=== PATIENT | female | born 1995 | race Caucasian/White ===

== ENCOUNTER 2017-11-08 18:46 | Emergency (ER) | payer MEDICARE, MEDICAID ==
[2017-11-08 19:52] VITALS: BP 143/97
--- NOTE | 2017-11-08 20:46 | EDM.PDOCBH ---
ED HPI GENERAL MEDICAL PROBLEM - General Chief Complaint: Behavioral/Psych Stated Complaint: EVAL Time Seen by Provider: 11/08/17 20:05 Source of Information: Reports: Patient History Limitations: Reports: No Limitations - History of Present Illness INITIAL COMMENTS - FREE TEXT/NARRATIVE: This young woman came in complaining of anxiety. She felt like somebody might be trying to get her. She takes Zyprexa but is only taking 10 mg per day. She said she was afraid to increase it because it might cause side effects. She takes Cogentin it's prescribed 1 mg twice daily but she only takes it once daily. Note that she is not having any type of EPS symptoms. There is no suicidal or homicidal ideation Denies Pain Score (Numeric/FACES): 0 - Related Data Allergies Allergy/AdvReac Type Severity Reaction Status Date / Time No Known Allergies Allergy Verified 12/13/16 02:46 Home Meds: Home Meds Benztropine [Cogentin] 1 tab PO BID 07/28/16 [History] Cholecalciferol (Vitamin D3) [Vitamin D3] 1 tab PO DAILY 07/28/16 [History] Sertraline [Zoloft] 100 tab PO DAILY 07/28/16 [History] OLANZapine [Zyprexa] 10 mg PO BEDTIME 11/08/17 [History] Past Medical History Cardiovascular History: Reports: Hypertension Psychiatric History: Reports: Addiction, Anxiety, Depression, Panic Attack, Psych Hospitalization(s), Schizophrenia - Infectious Disease History Infectious Disease History: Reports: Chicken Pox - Past Surgical History HEENT Surgical History: Reports: Oral Surgery Social & Family History - Tobacco Use Smoking Status *Q: Current Every Day Smoker Years of Tobacco use: 10 Packs/Tins Daily: 0.5 Used Tobacco, but Quit: No Second Hand Smoke Exposure: Yes - Caffeine Use Caffeine Use: Reports: Soda - Alcohol Use Days Per Week of Alcohol Use: 0 Number of Drinks Per Day: 2 Total Drinks Per Week: 0 - Recreational Drug Use Recreational Drug Use: No Drug Use in Last 12 Months: Yes Recreational Drug Type: Reports: Amphetamines (Speed), Marijuana/Hashish, Methamphetamine Recreational Drug Use Frequency: Weekly Recreational Drug Last Use: last night ED ROS GENERAL - Review of Systems Review Of Systems: ROS reveals no pertinent complaints other than HPI. ED EXAM, BEHAVIORAL HEALTH - Physical Exam Exam: See Below Exam Limited By: No Limitations General Appearance: Alert, WD/WN, No Apparent Distress Eye Exam: Bilateral Eye: Normal Inspection Respiratory/Chest: Lungs Clear Cardiovascular: Regular Rate, Rhythm Neurological: Alert, Normal Mood/Affect, CN II-XII Intact, Normal Cognition, Normal Gait, No Motor/Sensory Deficits Psychiatric: Alert, Normal Affect, Normal Cognition, Normal Mood, Other (This patient does not appear anxious) COURSE, BEHAVIORAL HEALTH COMP - Course Vital Signs: Last Vital Signs Temp 36.6 C 11/08/17 20:19 Pulse 77 11/08/17 20:19 Resp 16 11/08/17 20:19 BP 143/97 H 11/08/17 20:19 Pulse Ox 94 L 11/08/17 20:19 Departure - Departure Time of Disposition: 20:43 Disposition: Home, Self-Care 01 Condition: Fair Clinical Impression: Anxiety, Medication side effects - Discharge Information Instructions: Panic Attacks Referrals: Colton Suazo MD [Primary Care Provider] - Forms: ED Department Discharge Additional Instructions: You may increase Zyprexa to 15 mg daily or 1-1/2 tablets. The Cogentin can be increased to 1 mg twice daily as needed for side effects. 1 mg twice daily used to be the standard dose for counting the side effects of the older generation schizophrenia medications. The higher dose of Cogentin may give you a dry mouth. Follow-up with a psychiatrist as soon as possible or contact Dr. Suazo.
== END 2017-11-08 20:51 | disposition home or self-care (01) ==
LOC: JP.ED 18:46
DX: F41.9 Anxiety disorder, unspecified (principal); T43.595A Adverse effect of other antipsychotics and neuroleptics, initial encounter; I10 Essential (primary) hypertension; F32.9 Major depressive disorder, single episode, unspecified; F17.210 Nicotine dependence, cigarettes, uncomplicated; F20.9 Schizophrenia, unspecified; Z79.899 Other long term (current) drug therapy
CPT/HCPCS: 99283

== ENCOUNTER 2018-07-14 20:42 | Emergency (ER) | payer MEDICARE, MEDICAID ==
[2018-07-14 21:02] VITALS: BP 147/94
[2018-07-14] MEDS ORDERED: Aluminum Hydroxide/Magnesium Hydroxide/Simethicone Susp 30 ML Cup PO ONE (21:24)
--- NOTE | 2018-07-14 21:25 | EDM.PDOCBH ---
ED HPI GENERAL MEDICAL PROBLEM - General Chief Complaint: Behavioral/Psych Stated Complaint: EVAL Time Seen by Provider: 07/14/18 21:20 Source of Information: Reports: Patient, Old Records, RN History Limitations: Reports: No Limitations - History of Present Illness INITIAL COMMENTS - FREE TEXT/NARRATIVE: 23 yo female with known mental health issues presents with a family member due to being "on the verge of freaking out". Was transferred from here to [facility] about 3 weeks ago. Is not suicidal or homicidal currently. No recent illness. Onset: Today Onset Date: 07/14/18 Duration: Hour(s): Location: Reports: Generalized Quality: Reports: Burning (throat), Other (anxious) Severity: Moderate Improves with: Reports: None Worsens with: Reports: Other (uncertain) Context: Reports: Other (Hx of mental health problems) Associated Symptoms: Reports: Other (throat mild burning, post-nasal drip) Treatments ADMINISTRATOR: Reports: Other (see below) (usual meds only) - Related Data Allergies Allergy/AdvReac Type Severity Reaction Status Date / Time No Known Allergies Allergy Verified 06/18/18 20:25 Home Meds: Home Meds Benztropine [Cogentin] 1 tab PO BID 07/28/16 [History] OLANZapine [Olanzapine] 1 tab PO DAILY 07/14/18 [History] Past Medical History Cardiovascular History: Reports: Hypertension Psychiatric History: Reports: Addiction, Anxiety, Depression, Panic Attack, Psych Hospitalization(s), Schizophrenia - Infectious Disease History Infectious Disease History: Reports: Chicken Pox - Past Surgical History HEENT Surgical History: Reports: Oral Surgery Social & Family History - Family History Family Medical History: Noncontributory - Tobacco Use Smoking Status *Q: Current Every Day Smoker Years of Tobacco use: 10 Packs/Tins Daily: 0.5 - Caffeine Use Caffeine Use: Reports: Coffee, Energy Drinks, Soda - Recreational Drug Use Recreational Drug Use: No ED ROS GENERAL - Review of Systems Review Of Systems: See Below Constitutional: Reports: No Symptoms HEENT: Reports: Throat Pain (mild burning) Respiratory: Reports: No Symptoms Cardiovascular: Reports: No Symptoms GI/Abdominal: Reports: No Symptoms : Reports: No Symptoms Musculoskeletal: Reports: No Symptoms Skin: Reports: No Symptoms Neurological: Reports: No Symptoms Psychiatric: Reports: Anxiety ED EXAM, BEHAVIORAL HEALTH - Physical Exam Exam: See Below Exam Limited By: No Limitations General Appearance: Alert, WD/WN, No Apparent Distress Eye Exam: Bilateral Eye: Normal Inspection Ears: Normal External Exam, Normal Canal, Hearing Grossly Normal, Normal TMs Nose: Normal Inspection, Normal Mucosa, No Blood Throat/Mouth: Normal Inspection, Normal Lips, Normal Oropharynx, Normal Voice, No Airway Compromise Head: Atraumatic, Normocephalic Neck: Normal Inspection, Supple, Non-Tender Respiratory/Chest: No Respiratory Distress, Lungs Clear, Normal Breath Sounds, No Accessory Muscle Use Cardiovascular: Regular Rate, Rhythm, No Edema GI/Abdominal: Normal Bowel Sounds, Soft, Non-Tender, No Distention Extremities: Normal Inspection, Normal Range of Motion, Non-Tender, No Pedal Edema Neurological: Alert, Normal Mood/Affect, CN II-XII Intact, Normal Cognition, Normal Reflexes, No Motor/Sensory Deficits, Oriented x 3 Psychiatric: Alert, Normal Affect, Normal Cognition, Normal Mood, Oriented Skin Exam: Warm, Dry, Intact, Normal color, No rash COURSE, BEHAVIORAL HEALTH COMP - Course Vital Signs: Last Vital Signs Temp 36.7 C 07/14/18 21:07 Pulse 100 07/14/18 21:07 Resp 16 07/14/18 21:07 BP 147/94 H 07/14/18 21:07 Pulse Ox 98 07/14/18 21:07 Orders, Labs, Meds: Active Orders 24 hr Category Date Time Status DRUG SCREEN, URINE [URCHEM] Stat Lab 07/14/18 21:20 Ordered HCG QUALITATIVE,URINE [URCHEM] Stat Lab 07/14/18 21:20 Ordered UA W/MICROSCOPIC [URIN] Stat Lab 07/14/18 21:20 Ordered Laboratory Tests 07/14/18 07/14/18 07/14/18 Range/Units 21:20 21:20 21:20 WBC (4.5-11.0) K/uL RBC (3.30-5.50) M/uL Hgb (12.0-15.0) g/dL Hct (36.0-48.0) % MCV (80-98) fL MCH (27-31) pg MCHC (32-36) % Plt Count (150-400) K/uL Urine Color Yellow Urine Appearance Clear Urine pH 6.5 (4.5-8.0) Ur Specific [place] 1.015 (1.008-1.030) Urine Protein Negative (NEGATIVE) mg/dL Urine Glucose (UA) Normal (NEGATIVE) mg/dL Urine Ketones Negative (NEGATIVE) mg/dL Urine Occult Blood Negative (NEGATIVE) Urine Nitrite Negative (NEGATIVE) Urine Bilirubin Negative (NEGATIVE) Urine Urobilinogen Normal (NORMAL) mg/dL Ur Leukocyte Esterase Negative (NEGATIVE) Urine RBC 0-5 (0-5) Urine WBC 0-5 (0-5) Ur Epithelial Cells Many Amorphous Sediment Many Urine Bacteria Few Urine Mucus Not seen Urine HCG, Qual Negative Urine Opiates Screen Negative (NEGATIVE) Ur Oxycodone Screen Negative (NEGATIVE) Urine Methadone Screen Negative (NEGATIVE) Ur Propoxyphene Screen Negative (NEGATIVE) Ur Barbiturates Screen Negative (NEGATIVE) Ur Tricyclics Screen Negative (NEGATIVE) Ur Phencyclidine Scrn Negative (NEGATIVE) Ur Amphetamine Screen Negative (NEGATIVE) U Methamphetamines Scrn Negative (NEGATIVE) Urine MDMA Screen Negative (NEGATIVE) U Benzodiazepines Scrn Negative (NEGATIVE) U Cocaine Metab Screen Negative (NEGATIVE) U Marijuana (THC) Screen Presumptive positive H (NEGATIVE) 07/14/18 Range/Units 21:35 WBC 7.7 (4.5-11.0) K/uL RBC 4.82 (3.30-5.50) M/uL Hgb 14.5 (12.0-15.0) g/dL Hct 43.0 (36.0-48.0) % MCV 89 (80-98) fL MCH 30 (27-31) pg MCHC 34 (32-36) % Plt Count 166 (150-400) K/uL Urine Color Urine Appearance Urine pH (4.5-8.0) Ur Specific [place] (1.008-1.030) Urine Protein (NEGATIVE) mg/dL Urine Glucose (UA) (NEGATIVE) mg/dL Urine Ketones (NEGATIVE) mg/dL Urine Occult Blood (NEGATIVE) Urine Nitrite (NEGATIVE) Urine Bilirubin (NEGATIVE) Urine Urobilinogen (NORMAL) mg/dL Ur Leukocyte Esterase (NEGATIVE) Urine RBC (0-5) Urine WBC (0-5) Ur Epithelial Cells Amorphous Sediment Urine Bacteria Urine Mucus Urine HCG, Qual Urine Opiates Screen (NEGATIVE) Ur Oxycodone Screen (NEGATIVE) Urine Methadone Screen (NEGATIVE) Ur Propoxyphene Screen (NEGATIVE) Ur Barbiturates Screen (NEGATIVE) Ur Tricyclics Screen (NEGATIVE) Ur Phencyclidine Scrn (NEGATIVE) Ur Amphetamine Screen (NEGATIVE) U Methamphetamines Scrn (NEGATIVE) Urine MDMA Screen (NEGATIVE) U Benzodiazepines Scrn (NEGATIVE) U Cocaine Metab Screen (NEGATIVE) U Marijuana (THC) Screen (NEGATIVE) Medications Discontinued Medications Generic Name Dose Route Start Last Admin Trade Name Jocelyne PRN Reason Stop Dose Admin Al Hydroxide/Mg Hydroxide 30 ml 07/14/18 21:24 07/14/18 21:33 Mag-Al Plus PO 07/14/18 21:25 30 ml ONETIME ONE Administration Lorazepam 1 mg 07/14/18 21:24 07/14/18 22:01 Ativan PO 07/14/18 21:25 Not Given ONETIME ONE Re-Assessment/Re-Exam: After several hours in the ER Sujatha is feeling better, says she now thinks she was having a mild panic attack that has passed. Mother is OK with taking her home. Will follow up with her psych provider in [place] on . Departure - Departure Time of Disposition: 03:43 Disposition: Home, Self-Care 01 Condition: Good Clinical Impression: Anxiety - Discharge Information *PRESCRIPTION DRUG MONITORING PROGRAM REVIEWED*: Not Applicable *COPY OF PRESCRIPTION DRUG MONITORING REPORT IN PATIENT ARBEN: Not Applicable Referrals: PCP,None [Primary Care Provider] - Forms: ED Department Discharge Additional Instructions: Continue your current meds. F/U with your mental health provider early next week if possible. - My Orders Last 24 Hours: My Active Orders 07/14/18 21:20 DRUG SCREEN, URINE [URCHEM] Stat HCG QUALITATIVE,URINE [URCHEM] Stat UA W/MICROSCOPIC [URIN] Stat - Assessment/Plan Last 24 Hours: My Active Orders 07/14/18 21:20 DRUG SCREEN, URINE [URCHEM] Stat HCG QUALITATIVE,URINE [URCHEM] Stat UA W/MICROSCOPIC [URIN] Stat
[2018-07-14] MEDS: LORazepam 1 MG Tab PO ONE ×2 (21:33→22:01)
== END 2018-07-15 03:53 | disposition home or self-care (01) ==
LOC: JP.ED 20:42
DX: F41.9 Anxiety disorder, unspecified (principal); F17.210 Nicotine dependence, cigarettes, uncomplicated; I10 Essential (primary) hypertension; Z79.899 Other long term (current) drug therapy
CPT/HCPCS: 36415; 80305; 81001; 81025; 85027; 99283; A9270

== ENCOUNTER 2018-08-16 10:38 | Emergency (ER) | payer MEDICARE, MEDICAID ==
[2018-08-16 12:12] VITALS: BP 166/113
--- NOTE | 2018-08-16 12:45 | EDM.PDOC ---
ED HPI GENERAL MEDICAL PROBLEM - General Chief Complaint: ENT Problem Stated Complaint: SORES IN MOUTH Time Seen by Provider: 08/16/18 12:30 Source of Information: Reports: Patient History Limitations: Reports: No Limitations - History of Present Illness INITIAL COMMENTS - FREE TEXT/NARRATIVE: 23-year-old female who has some sores on her left lower lip for the past 2 days. No sore throat or fever. Onset: Gradual (Over the past 2 days) Oral/Mouth Pain Score (Numeric/FACES): 6 - Related Data Allergies Allergy/AdvReac Type Severity Reaction Status Date / Time No Known Allergies Allergy Verified 08/16/18 12:14 Home Meds: Home Meds risperiDONE 1 tab PO BEDTIME 08/16/18 [History] Past Medical History Cardiovascular History: Reports: Hypertension Psychiatric History: Reports: Addiction, Anxiety, Depression, Panic Attack, Psych Hospitalization(s), Schizophrenia - Infectious Disease History Infectious Disease History: Reports: Chicken Pox - Past Surgical History HEENT Surgical History: Reports: Oral Surgery Social & Family History - Family History Family Medical History: Noncontributory - Tobacco Use Smoking Status *Q: Light Tobacco Smoker Years of Tobacco use: 10 Packs/Tins Daily: 1 - Caffeine Use Caffeine Use: Reports: Coffee, Energy Drinks, Soda - Alcohol Use Days Per Week of Alcohol Use: 1 Number of Drinks Per Day: 3 Total Drinks Per Week: 3 - Recreational Drug Use Recreational Drug Use: Yes Recreational Drug Type: Reports: Marijuana/Hashish, Methamphetamine ED ROS ENT - Review of Systems Review Of Systems: See Below Constitutional: Denies: Fever, Chills Respiratory: Denies: Shortness of Breath GI/Abdominal: Denies: Nausea, Vomiting Psychiatric: Reports: Anxiety ED EXAM, ENT - Physical Exam Exam: See Below Exam Limited By: No Limitations General Appearance: Alert, No Apparent Distress, Anxious Mouth/Throat: Other (Patient does have some aphthous ulcers in the crease of the left lower gumline but no significant gingivitis or facial swelling) Respiratory/Chest: No Respiratory Distress Course - Vital Signs Last Recorded V/S: Last Vital Signs Temp 96.2 F 08/16/18 12:13 Pulse 151 H 08/16/18 12:13 Resp 16 08/16/18 12:13 BP 166/113 H 08/16/18 12:13 Pulse Ox 99 08/16/18 12:13 - Re-Assessments/Exams Free Text/Narrative Re-Assessment/Exam: 08/16/18 12:43 Patient will be placed on some triamcinolone oral paste twice daily, and can recheck if not improving satisfactorily. Departure - Departure Time of Disposition: 13:01 Disposition: Home, Self-Care 01 Condition: Good Clinical Impression: Aphthous ulcer of mouth - Discharge Information Instructions: Canker Sores Referrals: Colton Suazo MD [Primary Care Provider] - Forms: ED Department Discharge Care Plan Goals: Use steroid medicine on top of your sores twice daily until they are improved. Recheck in 3-4 days if not improving satisfactorily.
== END 2018-08-16 13:01 | disposition home or self-care (01) ==
LOC: JP.ED 10:38
DX: K12.0 Recurrent oral aphthae (principal); F17.210 Nicotine dependence, cigarettes, uncomplicated; I10 Essential (primary) hypertension; F41.9 Anxiety disorder, unspecified; F32.9 Major depressive disorder, single episode, unspecified; Z79.899 Other long term (current) drug therapy
CPT/HCPCS: 99283

== ENCOUNTER 2018-11-28 16:18 | Emergency (ER) | payer MEDICARE, MEDICAID | END 2018-11-28 17:15 | disposition left against medical advice (07) | LOC: JP.ED 16:18 | DX: Z53.21 Procedure and treatment not carried out due to patient leaving prior to being seen by health care provider (principal) ==

== ENCOUNTER 2019-02-19 10:53 | Emergency (ER) | payer MEDICARE, MEDICAID ==
--- NOTE | 2019-02-19 16:23 | EDM.PDOCBH ---
ED HPI GENERAL MEDICAL PROBLEM - General Chief Complaint: Behavioral/Psych Stated Complaint: EVAL Time Seen by Provider: 02/19/19 15:30 Source of Information: Reports: Patient History Limitations: Reports: No Limitations - History of Present Illness INITIAL COMMENTS - FREE TEXT/NARRATIVE: pt arrived to placed in a inpatient setting. She has been out of control at home. She is in the process of a civil commitment. She has been using Meth on a regular basis. A pipe and 2 empty bagies were found. She has been going through [facility] AND THEY ARE REQUESTING THAT SHE BE PLACED WHERE SHE CAN BE KEPT SAFE. sHE IS NOT TAKING HER NITE TIME MEDS. sHE DOES RECEIVE THE AMBILIFY IN THE im FORM. Onset: Gradual Duration: Day(s): Location: Reports: Other (PT HAS BEEN SMOKING mETH. 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: Psychiatric History: Reports: Addiction, Anxiety, Bipolar, Panic Attack, Psych Hospitalization(s), Schizophrenia - Infectious Disease History Infectious Disease History: Reports: Chicken Pox, Measles, Mumps - Past Surgical History Head Surgeries/Procedures: Reports: None HEENT Surgical History: Reports: Oral Surgery Respiratory Surgical History: Reports: None Dermatological Surgical History: Reports: None Social & Family History - Family History Family Medical History: Noncontributory - Tobacco Use Smoking Status *Q: Current Every Day Smoker Years of Tobacco use: 10 Packs/Tins Daily: 0.5 - Caffeine Use Caffeine Use: Reports: Coffee, Energy Drinks, Soda - Recreational Drug Use Recreational Drug Use: Yes Drug Use in Last 12 Months: Yes Recreational Drug Type: Reports: Marijuana/Hashish, Methamphetamine Recreational Drug Use Frequency: Weekly ED ROS GENERAL - Review of Systems Review Of Systems: See Below Constitutional: Reports: No Symptoms HEENT: Reports: No Symptoms Respiratory: Reports: No Symptoms Cardiovascular: Reports: No Symptoms Endocrine: Reports: No Symptoms GI/Abdominal: Reports: No Symptoms : Reports: No Symptoms Musculoskeletal: Reports: No Symptoms Skin: Reports: No Symptoms Psychiatric: Reports: Agitation, Anxiety, Hallucinations (PT HAS VARIOUS SYMPTOMS FROM HER USAGE. sHE HAS NOT SLEPT FOR A NUMBER OF DAYS. ), Other ED EXAM, BEHAVIORAL HEALTH - Physical Exam Exam: See Below Text/Narrative:: pT ARRIVED WITH A HISTORY OF USING mETH REGULARLY AND BEING QUITE OUT OF CONTROL SHE IS NOT TAKING HER USUAL MEDS. -- AT NITE. Exam Limited By: No Limitations General Appearance: Alert, Other (PT IS SLEEP DEPRIVED. ) Ears: Normal TMs Nose: Normal Inspection Throat/Mouth: Normal Inspection, Inflammation Neck: Normal Inspection Respiratory/Chest: No Respiratory Distress Cardiovascular: Regular Rate, Rhythm GI/Abdominal: Soft, Non-Tender Rectal (Female) Exam: Deferred Back Exam: Normal Inspection Extremities: Normal Inspection Neurological: Alert Psychiatric: Alert, Other (PT IS USING METH ON A REGULAR BASIS. ) COURSE, BEHAVIORAL HEALTH COMP - Course Vital Signs: Last Vital Signs Temp 35.3 C 02/19/19 18:20 Pulse 89 02/19/19 18:20 Resp 16 02/19/19 18:20 BP 124/83 02/19/19 18:20 Pulse Ox 98 02/19/19 18:20 Orders, Labs, Meds: Laboratory Tests 02/19/19 02/19/19 02/19/19 Range/Units 15:32 15:32 15:39 WBC 8.0 (4.5-11.0) K/uL RBC 4.96 (3.30-5.50) M/uL Hgb 14.8 (12.0-15.0) g/dL Hct 43.1 (36.0-48.0) % MCV 87 (80-98) fL MCH 30 (27-31) pg MCHC 34 (32-36) % Plt Count 205 (150-400) K/uL Neut % (Auto) 53 (36-66) % Lymph % (Auto) 33 (24-44) % [place] % (Auto) 13 H (2-6) % Eos % (Auto) 1 L (2-4) % Baso % (Auto) 0 (0-1) % Sodium (140-148) mmol/L Potassium (3.6-5.2) mmol/L Chloride (100-108) mmol/L Carbon Dioxide (21-32) mmol/L Anion Gap (5.0-14.0) mmol/L BUN (7-18) mg/dL Creatinine (0.6-1.0) mg/dL Est Cr Clr Drug Dosing mL/min Estimated GFR (MDRD) (>60) Glucose (74-106) mg/dL Calcium (8.5-10.1) mg/dL Total Bilirubin (0.2-1.0) mg/dL AST (15-37) U/L ALT (12-78) U/L Alkaline Phosphatase (46-116) U/L Total Protein (6.4-8.2) g/dL Albumin (3.4-5.0) g/dL Globulin (2.3-3.5) g/dL Albumin/Globulin Ratio (1.2-2.2) HCG, Quant (0-6) mIU/mL Urine Color Yellow Urine Appearance Clear Urine pH 5.0 (4.5-8.0) Ur Specific [place] 1.020 (1.008-1.030) Urine Protein Negative (NEGATIVE) mg/dL Urine Glucose (UA) 50 H (NEGATIVE) mg/dL Urine Ketones Negative (NEGATIVE) mg/dL Urine Occult Blood Negative (NEGATIVE) Urine Nitrite Negative (NEGATIVE) Urine Bilirubin Negative (NEGATIVE) Urine Urobilinogen Normal (NORMAL) mg/dL Ur Leukocyte Esterase Negative (NEGATIVE) Urine RBC 0-5 (0-5) Urine WBC 0-5 (0-5) Ur Epithelial Cells Few Amorphous Sediment Few Urine Bacteria Not seen Urine Mucus Not seen Urine Opiates Screen Negative (NEGATIVE) Ur Oxycodone Screen Negative (NEGATIVE) Urine Methadone Screen Negative (NEGATIVE) Ur Propoxyphene Screen Negative (NEGATIVE) Ur Barbiturates Screen Negative (NEGATIVE) Ur Tricyclics Screen Negative (NEGATIVE) Ur Phencyclidine Scrn Negative (NEGATIVE) Ur Amphetamine Screen Presumptive positive H (NEGATIVE) U Methamphetamines Scrn Presumptive positive H (NEGATIVE) Urine MDMA Screen Negative (NEGATIVE) U Benzodiazepines Scrn Negative (NEGATIVE) U Cocaine Metab Screen Negative (NEGATIVE) U Marijuana (THC) Screen Presumptive positive H (NEGATIVE) Ethyl Alcohol mg/dL 02/19/19 02/19/19 02/19/19 Range/Units 15:39 15:39 16:17 WBC (4.5-11.0) K/uL RBC (3.30-5.50) M/uL Hgb (12.0-15.0) g/dL Hct (36.0-48.0) % MCV (80-98) fL MCH (27-31) pg MCHC (32-36) % Plt Count (150-400) K/uL Neut % (Auto) (36-66) % Lymph % (Auto) (24-44) % [place] % (Auto) (2-6) % Eos % (Auto) (2-4) % Baso % (Auto) (0-1) % Sodium 139 L (140-148) mmol/L Potassium 3.9 (3.6-5.2) mmol/L Chloride 102 (100-108) mmol/L Carbon Dioxide 27 (21-32) mmol/L Anion Gap 13.9 (5.0-14.0) mmol/L BUN 14 (7-18) mg/dL Creatinine 1.0 (0.6-1.0) mg/dL Est Cr Clr Drug Dosing 62.31 mL/min Estimated GFR (MDRD) > 60 (>60) Glucose 68 L (74-106) mg/dL Calcium 9.3 (8.5-10.1) mg/dL Total Bilirubin 0.8 (0.2-1.0) mg/dL AST 9 L (15-37) U/L ALT 12 (12-78) U/L Alkaline Phosphatase 88 (46-116) U/L Total Protein 7.7 (6.4-8.2) g/dL Albumin 4.1 (3.4-5.0) g/dL Globulin 3.6 H (2.3-3.5) g/dL Albumin/Globulin Ratio 1.1 L (1.2-2.2) HCG, Quant 0 (0-6) mIU/mL Urine Color Urine Appearance Urine pH (4.5-8.0) Ur Specific [place] (1.008-1.030) Urine Protein (NEGATIVE) mg/dL Urine Glucose (UA) (NEGATIVE) mg/dL Urine Ketones (NEGATIVE) mg/dL Urine Occult Blood (NEGATIVE) Urine Nitrite (NEGATIVE) Urine Bilirubin (NEGATIVE) Urine Urobilinogen (NORMAL) mg/dL Ur Leukocyte Esterase (NEGATIVE) Urine RBC (0-5) Urine WBC (0-5) Ur Epithelial Cells Amorphous Sediment Urine Bacteria Urine Mucus Urine Opiates Screen (NEGATIVE) Ur Oxycodone Screen (NEGATIVE) Urine Methadone Screen (NEGATIVE) Ur Propoxyphene Screen (NEGATIVE) Ur Barbiturates Screen (NEGATIVE) Ur Tricyclics Screen (NEGATIVE) Ur Phencyclidine Scrn (NEGATIVE) Ur Amphetamine Screen (NEGATIVE) U Methamphetamines Scrn (NEGATIVE) Urine MDMA Screen (NEGATIVE) U Benzodiazepines Scrn (NEGATIVE) U Cocaine Metab Screen (NEGATIVE) U Marijuana (THC) Screen (NEGATIVE) Ethyl Alcohol < 3 mg/dL Medications Discontinued Medications Generic Name Dose Route Start Last Admin Trade Name Freq PRN Reason Stop Dose Admin Lorazepam 1 mg 02/19/19 18:02 02/19/19 18:07 Ativan PO 02/19/19 18:03 1 mg ONETIME ONE Administration Medical Clearance: 02/19/19 16:25 DRUG SCREEN IS POSITIVE FOR METH AND FOR MARAJAUNA. hER LAB WORK OTHERWISE LOOKS GOOD. 02/19/19 16:26 02/19/19 18:03 pt was accepted at [facility]. . She was given ativan 1 mg prior to leaving. 02/20/19 07:20 Departure - Departure Time of Disposition: 18:04 Disposition: DC/Tfer to Psych Hosp/Unit 65 Condition: Fair Clinical Impression: Bipolar 1 disorder, Methamphetamine abuse - Discharge Information Referrals: Colton Suazo MD [Primary Care Provider] - Forms: ED Department Discharge Care Plan Goals: Transfer to [facility] in [place].
[2019-02-19] MEDS ORDERED: LORazepam 1 MG Tab PO ONE (18:02)
[2019-02-19 18:21] VITALS: BP 124/83
== END 2019-02-19 19:06 ==
LOC: JP.ED 10:53
DX: F31.9 Bipolar disorder, unspecified (principal); F15.10 Other stimulant abuse, uncomplicated; I10 Essential (primary) hypertension; F17.210 Nicotine dependence, cigarettes, uncomplicated; Z88.8 Allergy status to other drugs, medicaments and biological substances
CPT/HCPCS: 36415; 80053; 80305; 81001; 84702; 85025; 99285; A9270; G0480

== ENCOUNTER 2019-06-27 17:03 | Emergency (ER) | payer MEDICARE, MEDICAID ==
--- NOTE | 2019-06-27 17:48 | EDM.PDOC ---
ED HPI GENERAL MEDICAL PROBLEM - General Chief Complaint: Cardiovascular Problem Stated Complaint: CHECKING PULSE HIGH Time Seen by Provider: 06/27/19 17:30 Source of Information: Reports: Patient, Old Records, RN History Limitations: Reports: No Limitations - History of Present Illness INITIAL COMMENTS - FREE TEXT/NARRATIVE: 24 yo female was in the [facility] clinic today for a sore throat and tachycardia. An antibiotic was prescribed and blood was drawn to be sent out. They then told Sujatha to come to the ER. We do not know what tests they intended to run. The tachycardia has apparently been going on for about a month. There is no fever, diarrhea, melena, diarrhea, vomiting, or chest pains. Sujatha has been recently hospitalized in a psychiatric facility and had a lot of blood work there and apparently had intermittent tachycardia while there. It is not clear what was done about it. There is a remote hx of methamphetamine use. Onset: Unknown/Unsure Duration: Week(s):, Constant Location: Reports: Chest Quality: Reports: Other (no pain with her tachycardia) Severity: Moderate Improves with: Reports: None Worsens with: Reports: None Context: Reports: Other (See above, did have a "Monster Drink" this morning. 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: Reports: Other (see below) (none) - Related Data Allergies Allergy/AdvReac Type Severity Reaction Status Date / Time risperidone [From Risperdal] AdvReac Delusions Verified 06/27/19 17:20 Home Meds: Home Meds Benztropine Mesylate 2 mg PO BEDTIME 10/18/18 [History] Benztropine Mesylate 1 tab PO ONETIME PRN 12/13/18 [History] Haloperidol Decanoate 06/27/19 [History] LORazepam 06/27/19 [History] Metoprolol Succinate 100 mg PO BEDTIME #14 tab.er.24h 06/27/19 [Rx] cloZAPine 06/27/19 [History] Past Medical History HEENT History: Reports: None Cardiovascular History: Reports: Hypertension 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: Psychiatric History: Reports: Addiction, Anxiety, Bipolar, Panic Attack, Psych Hospitalization(s), Schizophrenia - Infectious Disease History Infectious Disease History: Reports: Chicken Pox, Measles, Mumps - Past Surgical History Head Surgeries/Procedures: Reports: None HEENT Surgical History: Reports: Oral Surgery Respiratory Surgical History: Reports: None Dermatological Surgical History: Reports: None Social & Family History - Family History Family Medical History: Noncontributory - Tobacco Use Smoking Status *Q: Current Every Day Smoker Years of Tobacco use: 6 Packs/Tins Daily: 0.5 - Caffeine Use Caffeine Use: Reports: Coffee, Energy Drinks, Soda ED ROS GENERAL - Review of Systems Review Of Systems: See Below Constitutional: Reports: No Symptoms HEENT: Reports: No Symptoms Respiratory: Reports: No Symptoms Cardiovascular: Reports: Other (tachycardia) GI/Abdominal: Reports: No Symptoms : Reports: No Symptoms Musculoskeletal: Reports: No Symptoms Skin: Reports: No Symptoms Neurological: Reports: No Symptoms ED EXAM, GENERAL - Physical Exam Exam: See Below Exam Limited By: No Limitations General Appearance: Alert, WD/WN, No Apparent Distress Eye Exam: Bilateral Eye: Normal Inspection Ears: Normal External Exam, Normal Canal, Hearing Grossly Normal, Normal TMs Ear Exam: Bilateral Ear: Auricle Normal, Canal Normal, TM normal Nose: Normal Inspection, No Blood Throat/Mouth: Normal Inspection, Normal Lips, Normal Oropharynx, Normal Voice, No Airway Compromise Head: Atraumatic, Normocephalic Neck: Normal Inspection Respiratory/Chest: No Respiratory Distress, Lungs Clear, Normal Breath Sounds, No Accessory Muscle Use Cardiovascular: Regular Rate, Rhythm, No Edema, Tachycardia GI/Abdominal: Normal Bowel Sounds, Soft, Non-Tender, No Distention Back Exam: Normal Inspection. No: CVA Tenderness (R), CVA Tenderness (L) Extremities: Normal Inspection, Normal Range of Motion, Non-Tender, No Pedal Edema Neurological: Alert, Oriented, CN II-XII Intact, Normal Cognition, No Motor/ Sensory Deficits Psychiatric: Normal Affect, Normal Mood Skin Exam: Warm, Dry, Intact, Normal Color, No Rash Course - Vital Signs Text/Narrative:: Orthostats normal Last Recorded V/S: Last Vital Signs Temp 36.8 C 06/27/19 17:30 Pulse 122 H 06/27/19 18:23 Resp 15 06/27/19 18:18 BP 137/89 06/27/19 18:23 Pulse Ox 99 06/27/19 18:18 Orthostatic Blood Pressure [ 130/88 Standing] Orthostatic Blood Pressure [ 132/90 Sitting] Orthostatic Blood Pressure [ 129/86 Supine] - Orders/Labs/Meds Orders: Active Orders 24 hr Category Date Time Status Cardiac Monitoring [RC] .As Directed Care 06/27/19 17:33 Active Orthostatic Vital Signs [RC] ASDIRECTED Care 06/27/19 17:33 Active Labs: Laboratory Tests 06/27/19 06/27/19 06/27/19 Range/Units 17:51 17:54 17:56 WBC (4.5-11.0) K/uL RBC (3.30-5.50) M/uL Hgb (12.0-15.0) g/dL Hct (36.0-48.0) % MCV (80-98) fL MCH (27-31) pg MCHC (32-36) % Plt Count (150-400) K/uL Sodium 141 (140-148) mmol/L Potassium 3.9 (3.6-5.2) mmol/L Chloride 104 (100-108) mmol/L Carbon Dioxide 25 (21-32) mmol/L Anion Gap 12.5 (5.0-14.0) mmol/L BUN 9 (7-18) mg/dL Creatinine 0.9 (0.6-1.0) mg/dL Est Cr Clr Drug Dosing 96.63 mL/min Estimated GFR (MDRD) > 60 (>60) Glucose 105 (74-106) mg/dL Calcium 9.0 (8.5-10.1) mg/dL TSH, Ultra Sensitive (0.358-3.740) uIU/mL Urine Color Yellow (YELLOW) Urine Appearance Slightly cloudy A (CLEAR) Urine pH 7.0 (5.0-8.0) Ur Specific [place] 1.020 (1.008-1.030) Urine Protein Negative (NEGATIVE) mg/dL Urine Glucose (UA) Normal (NEGATIVE) mg/dL Urine Ketones Negative (NEGATIVE) mg/dL Urine Occult Blood Moderate (NEGATIVE) Urine Nitrite Negative (NEGATIVE) Urine Bilirubin Negative (NEGATIVE) Urine Urobilinogen Normal (0.2-1.0) EU/dL Ur Leukocyte Esterase Negative (NEGATIVE) Urine RBC 5-10 H (0-5) Urine WBC Not seen (0-5) Ur Epithelial Cells Not seen Amorphous Sediment Many Urine Bacteria Not seen Urine Mucus Numerous Urine Opiates Screen Negative (NEGATIVE) Ur Oxycodone Screen Negative (NEGATIVE) Urine Methadone Screen Negative (NEGATIVE) Ur Propoxyphene Screen Negative (NEGATIVE) Ur Barbiturates Screen Negative (NEGATIVE) Ur Tricyclics Screen Negative (NEGATIVE) Ur Phencyclidine Scrn Negative (NEGATIVE) Ur Amphetamine Screen Negative (NEGATIVE) U Methamphetamines Scrn Negative (NEGATIVE) Urine MDMA Screen Negative (NEGATIVE) U Benzodiazepines Scrn Negative (NEGATIVE) U Cocaine Metab Screen Negative (NEGATIVE) U Marijuana (THC) Screen Negative (NEGATIVE) 06/27/19 06/27/19 Range/Units 17:56 17:57 WBC 6.7 (4.5-11.0) K/uL RBC 4.62 (3.30-5.50) M/uL Hgb 13.3 (12.0-15.0) g/dL Hct 41.2 (36.0-48.0) % MCV 89 (80-98) fL MCH 29 (27-31) pg MCHC 32 (32-36) % Plt Count 186 (150-400) K/uL Sodium (140-148) mmol/L Potassium (3.6-5.2) mmol/L Chloride (100-108) mmol/L Carbon Dioxide (21-32) mmol/L Anion Gap (5.0-14.0) mmol/L BUN (7-18) mg/dL Creatinine (0.6-1.0) mg/dL Est Cr Clr Drug Dosing mL/min Estimated GFR (MDRD) (>60) Glucose (74-106) mg/dL Calcium (8.5-10.1) mg/dL TSH, Ultra Sensitive 0.625 (0.358-3.740) uIU/mL Urine Color (YELLOW) Urine Appearance (CLEAR) Urine pH (5.0-8.0) Ur Specific [place] (1.008-1.030) Urine Protein (NEGATIVE) mg/dL Urine Glucose (UA) (NEGATIVE) mg/dL Urine Ketones (NEGATIVE) mg/dL Urine Occult Blood (NEGATIVE) Urine Nitrite (NEGATIVE) Urine Bilirubin (NEGATIVE) Urine Urobilinogen (0.2-1.0) EU/dL Ur Leukocyte Esterase (NEGATIVE) Urine RBC (0-5) Urine WBC (0-5) Ur Epithelial Cells Amorphous Sediment Urine Bacteria Urine Mucus Urine Opiates Screen (NEGATIVE) Ur Oxycodone Screen (NEGATIVE) Urine Methadone Screen (NEGATIVE) Ur Propoxyphene Screen (NEGATIVE) Ur Barbiturates Screen (NEGATIVE) Ur Tricyclics Screen (NEGATIVE) Ur Phencyclidine Scrn (NEGATIVE) Ur Amphetamine Screen (NEGATIVE) U Methamphetamines Scrn (NEGATIVE) Urine MDMA Screen (NEGATIVE) U Benzodiazepines Scrn (NEGATIVE) U Cocaine Metab Screen (NEGATIVE) U Marijuana (THC) Screen (NEGATIVE) Meds: Medications Discontinued Medications Generic Name Dose Route Start Last Admin Trade Name Freq PRN Reason Stop Dose Admin Metoprolol Tartrate 25 mg 06/27/19 18:18 06/27/19 18:23 Lopressor PO 06/27/19 18:19 25 mg ONETIME ONE Administration Departure - Departure Time of Disposition: 19:00 Disposition: Home, Self-Care 01 Condition: Fair Clinical Impression: Tachycardia Prescriptions: Metoprolol Succinate 100 mg PO BEDTIME #14 tab.er.24h Instructions: Sinus Tachycardia Referrals: Marlee Cash PA-C [Primary Care Provider] - Forms: ED Department Discharge Additional Instructions: Take the metoprolol at bedtime daily. Recheck in the clinic within the week. Return as needed. Avoid caffeine. - My Orders Last 24 Hours: My Active Orders 06/27/19 17:33 Cardiac Monitoring [RC] .As Directed Orthostatic Vital Signs [RC] ASDIRECTED - Assessment/Plan Last 24 Hours: My Active Orders 06/27/19 17:33 Cardiac Monitoring [RC] .As Directed Orthostatic Vital Signs [RC] ASDIRECTED
[2019-06-27 18:18] VITALS: BP 137/89
[2019-06-27] MEDS ORDERED: Metoprolol Tartrate 25 MG Tab PO ONE (18:18)
[2019-06-27 18:32] VITALS: PULSE 122
== END 2019-06-27 18:59 | disposition home or self-care (01) ==
LOC: JP.ED 17:03
DX: R00.0 Tachycardia, unspecified (principal); I10 Essential (primary) hypertension; F41.9 Anxiety disorder, unspecified; F17.210 Nicotine dependence, cigarettes, uncomplicated; Z88.8 Allergy status to other drugs, medicaments and biological substances; Z79.899 Other long term (current) drug therapy
CPT/HCPCS: 36415; 80048; 80305; 81001; 84443; 85027; 99284; A9270

== ENCOUNTER 2019-07-10 09:44 | Emergency (ER) | payer MEDICARE, MEDICAID ==
--- NOTE | 2019-07-10 10:00 | EDM.PDOCBH ---
ED HPI GENERAL MEDICAL PROBLEM - General Chief Complaint: Behavioral/Psych Stated Complaint: EVEL MENTAL Time Seen by Provider: 07/10/19 09:59 Source of Information: Reports: Patient, Old Records, RN History Limitations: Reports: No Limitations - History of Present Illness INITIAL COMMENTS - FREE TEXT/NARRATIVE: 24 yo female here for medical clearance before admission to a psych facility in [place]. His transport team is standing by at this time. Going to [place] on a civil commitment. Was recently given PCN in the clinic for a cough and is not yet fully over the coughing. Does smoke. Onset: Gradual Duration: Chronic Location: Reports: Generalized Quality: Reports: Other (no pain) Severity: Moderate Improves with: Reports: Medication Worsens with: Reports: Other (non-compliance) Context: Reports: Other (See HPI) Associated Symptoms: Reports: Cough (dry), Shortness of Breath (only if she coughs very hard). 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: Psychiatric History: Reports: Addiction, Anxiety, Bipolar, Panic Attack, Psych Hospitalization(s), Schizophrenia - Infectious Disease History Infectious Disease History: Reports: Chicken Pox, Measles, Mumps - Past Surgical History Head Surgeries/Procedures: Reports: None HEENT Surgical History: Reports: Oral Surgery Respiratory Surgical History: Reports: None Dermatological Surgical History: Reports: None Social & Family History - Family History Family Medical History: Noncontributory - Caffeine Use Caffeine Use: Reports: Coffee, Energy Drinks, Soda ED ROS GENERAL - Review of Systems Review Of Systems: See Below Constitutional: Reports: No Symptoms HEENT: Reports: No Symptoms Respiratory: Reports: Cough. Denies: Shortness of Breath, Wheezing, Pleuritic Chest Pain, Sputum Cardiovascular: Reports: No Symptoms GI/Abdominal: Reports: No Symptoms : Reports: No Symptoms Musculoskeletal: Reports: No Symptoms Skin: Reports: No Symptoms Neurological: Reports: No Symptoms Psychiatric: Reports: Other (chronic mental illness) ED EXAM, BEHAVIORAL HEALTH - Physical Exam Exam: See Below Exam Limited By: No Limitations General Appearance: Alert, WD/WN, No Apparent Distress Eye Exam: Bilateral Eye: Normal Inspection, PERRL Ears: Normal External Exam, Normal Canal, Hearing Grossly Normal, Normal TMs Nose: Normal Inspection, No Blood Throat/Mouth: Normal Inspection, Normal Lips, Normal Oropharynx, Normal Voice, No Airway Compromise Head: Atraumatic, Normocephalic Neck: Normal Inspection Respiratory/Chest: No Respiratory Distress, Lungs Clear, Normal Breath Sounds, No Accessory Muscle Use, Other (dry cough) Cardiovascular: Regular Rate, Rhythm, No Edema GI/Abdominal: Normal Bowel Sounds, Soft, Non-Tender, No Distention Back Exam: Normal Inspection. No: CVA Tenderness (R), CVA Tenderness (L) Extremities: Normal Inspection, Normal Range of Motion, Non-Tender, No Pedal Edema Neurological: Alert, Normal Mood/Affect, CN II-XII Intact, Normal Cognition, No Motor/Sensory Deficits, Oriented x 3 Psychiatric: Alert, Normal Affect, Normal Cognition, Normal Mood, Oriented Skin Exam: Warm, Dry, Intact, Normal color, No rash COURSE, BEHAVIORAL HEALTH COMP - Course Vital Signs: Last Vital Signs Temp 35.5 C 07/10/19 10:00 Pulse 121 H 07/10/19 10:00 Resp 16 07/10/19 10:00 BP 124/89 07/10/19 10:00 Pulse Ox 99 07/10/19 10:00 Orders, Labs, Meds: Active Orders 24 hr Category Date Time Status UA W/MICROSCOPIC [URIN] Stat Lab 07/10/19 10:47 Ordered Laboratory Tests 07/10/19 07/10/19 07/10/19 Range/Units 10:07 10:07 10:07 WBC 3.9 L (4.5-11.0) K/uL RBC 4.53 (3.30-5.50) M/uL Hgb 13.0 (12.0-15.0) g/dL Hct 40.5 (36.0-48.0) % MCV 89 (80-98) fL MCH 29 (27-31) pg MCHC 32 (32-36) % Plt Count 137 L (150-400) K/uL Sodium 140 (140-148) mmol/L Potassium 4.1 (3.6-5.2) mmol/L Chloride 106 (100-108) mmol/L Carbon Dioxide 26 (21-32) mmol/L Anion Gap 8.1 (5.0-14.0) mmol/L BUN 12 (7-18) mg/dL Creatinine 1.0 (0.6-1.0) mg/dL Est Cr Clr Drug Dosing 62.31 mL/min Estimated GFR (MDRD) > 60 (>60) Glucose 133 H (74-106) mg/dL Calcium 8.6 (8.5-10.1) mg/dL Urine HCG, Qual Urine Opiates Screen (NEGATIVE) Ur Oxycodone Screen (NEGATIVE) Urine Methadone Screen (NEGATIVE) Ur Propoxyphene Screen (NEGATIVE) Ur Barbiturates Screen (NEGATIVE) Ur Tricyclics Screen (NEGATIVE) Ur Phencyclidine Scrn (NEGATIVE) Ur Amphetamine Screen (NEGATIVE) U Methamphetamines Scrn (NEGATIVE) Urine MDMA Screen (NEGATIVE) U Benzodiazepines Scrn (NEGATIVE) U Cocaine Metab Screen (NEGATIVE) U Marijuana (THC) Screen (NEGATIVE) Ethyl Alcohol < 3 mg/dL 07/10/19 07/10/19 Range/Units 10:47 10:47 WBC (4.5-11.0) K/uL RBC (3.30-5.50) M/uL Hgb (12.0-15.0) g/dL Hct (36.0-48.0) % MCV (80-98) fL MCH (27-31) pg MCHC (32-36) % Plt Count (150-400) K/uL Sodium (140-148) mmol/L Potassium (3.6-5.2) mmol/L Chloride (100-108) mmol/L Carbon Dioxide (21-32) mmol/L Anion Gap (5.0-14.0) mmol/L BUN (7-18) mg/dL Creatinine (0.6-1.0) mg/dL Est Cr Clr Drug Dosing mL/min Estimated GFR (MDRD) (>60) Glucose (74-106) mg/dL Calcium (8.5-10.1) mg/dL Urine HCG, Qual Negative Urine Opiates Screen Negative (NEGATIVE) Ur Oxycodone Screen Negative (NEGATIVE) Urine Methadone Screen Negative (NEGATIVE) Ur Propoxyphene Screen Negative (NEGATIVE) Ur Barbiturates Screen Negative (NEGATIVE) Ur Tricyclics Screen Negative (NEGATIVE) Ur Phencyclidine Scrn Negative (NEGATIVE) Ur Amphetamine Screen Presumptive positive H (NEGATIVE) U Methamphetamines Scrn Presumptive positive H (NEGATIVE) Urine MDMA Screen Negative (NEGATIVE) U Benzodiazepines Scrn Presumptive positive H (NEGATIVE) U Cocaine Metab Screen Negative (NEGATIVE) U Marijuana (THC) Screen Negative (NEGATIVE) Ethyl Alcohol mg/dL Departure - Departure Time of Disposition: 11:10 Disposition: DC/Tfer to Other 70 Condition: Good Clinical Impression: Chronic mental illness, Methamphetamine abuse - Discharge Information *PRESCRIPTION DRUG MONITORING PROGRAM REVIEWED*: No *COPY OF PRESCRIPTION DRUG MONITORING REPORT IN PATIENT ARBEN: No Referrals: Marlee Cash PA-C [Primary Care Provider] - Forms: ED Department Discharge Additional Instructions: Medically cleared for transport to [facility]. - My Orders Last 24 Hours: My Active Orders 07/10/19 10:47 UA W/MICROSCOPIC [URIN] Stat - Assessment/Plan Last 24 Hours: My Active Orders 07/10/19 10:47 UA W/MICROSCOPIC [URIN] Stat
[2019-07-10 10:03] VITALS: BP 124/89
[2019-07-10] MEDS ORDERED: LORazepam 1 MG Tab PO ONE (13:21)
== END 2019-07-10 16:45 | disposition other institution (70) ==
LOC: JP.ED 09:44
DX: F15.20 Other stimulant dependence, uncomplicated (principal); F99 Mental disorder, not otherwise specified; I10 Essential (primary) hypertension; F31.9 Bipolar disorder, unspecified; F41.0 Panic disorder [episodic paroxysmal anxiety]; Z88.8 Allergy status to other drugs, medicaments and biological substances
CPT/HCPCS: 36415; 80048; 80305; 81001; 81025; 85027; 99285; A9270; G0480

== ENCOUNTER 2019-11-23 19:47 | Emergency (ER) | payer MEDICARE, MEDICAID ==
[2019-11-23] MEDS ORDERED: Alum Hydrox/Mag Hydrox/Simeth 15 ML, Lidocaine 2% 15 ML PO ONE ×2 (20:54)
[2019-11-23] MEDS ORDERED: Albuterol/Ipratropium 3.0-0.5 MG/3 ML Neb Soln NEB ONE (20:55)
--- NOTE | 2019-11-23 21:01 | EDM.PDOC ---
ED HPI GENERAL MEDICAL PROBLEM - General Chief Complaint: Respiratory Problem Stated Complaint: DRY COUGHING, VOMITING Time Seen by Provider: 11/23/19 20:45 Source of Information: Reports: Patient, Family, Old Records History Limitations: Reports: Other (patient is a poor historian) - History of Present Illness INITIAL COMMENTS - FREE TEXT/NARRATIVE: 24 yo female presents with a complaint of a dry cough for a couple of weeks. She coughs to the point of vomiting. Now also has epigastric pain that is fairly new. Has been seen a couple times in the clinic. The first times he was tx'd with a course of Cefdinir. When she didn't improve she was given prednisone (2 courses) that she is mostly done with also without benefit. Was given an inhaler that she does not know the name of(albuterol) that is also not helping. No vomiting separate from coughing. No fever or SOB. Noticed today that her heart rate is elevated over her normal. No black stools or diarrhea. Onset: Gradual Duration: Week(s):, Constant Location: Reports: Chest, Abdomen (epigastrium) Quality: Reports: Burning (epigastric) Severity: Moderate Improves with: Reports: None Worsens with: Reports: Other (? time) Context: Reports: Other (see HPI) Associated Symptoms: Reports: Cough, Nausea/Vomiting (only with coughing). Denies: Fever/Chills, Shortness of Breath Treatments MEDICAL TECHNICIAN ASSISTANT: Reports: Other (see below) Other Treatments MEDICAL TECHNICIAN ASSISTANT: antibiotics epigastric Pain Score (Numeric/FACES): 8 - Related Data Allergies Allergy/AdvReac Type Severity Reaction Status Date / Time risperidone [From Risperdal] AdvReac Delusions Verified 11/23/19 20:32 Home Meds: Home Meds Benztropine Mesylate 2 mg PO BID 10/18/18 [History] Haloperidol Decanoate 150 mg IM ASDIRECTED 06/27/19 [History] LORazepam 1 tab PO QID PRN 06/27/19 [History] cloZAPine 2 tab PO BEDTIME 06/27/19 [History] Benzonatate [Tessalon Perle] 100 - 200 mg PO QID PRN #40 capsule 11/23/19 [Rx] Sucralfate [Carafate] 1 gm PO QID #100 tablet 11/23/19 [Rx] predniSONE 40 mg PO BID 11/23/19 [History] Past Medical History HEENT History: Reports: None Cardiovascular History: Reports: Hypertension 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: Psychiatric History: Reports: Addiction, Anxiety, Bipolar, Panic Attack, Psych Hospitalization(s), Schizophrenia - Infectious Disease History Infectious Disease History: Reports: Chicken Pox - Past Surgical History Head Surgeries/Procedures: Reports: None HEENT Surgical History: Reports: Oral Surgery Respiratory Surgical History: Reports: None Dermatological Surgical History: Reports: None Social & Family History - Family History Family Medical History: Noncontributory - Tobacco Use Smoking Status *Q: Current Every Day Smoker Years of Tobacco use: 13 Packs/Tins Daily: 0.5 Second Hand Smoke Exposure: Yes - Caffeine Use Caffeine Use: Reports: Coffee, Soda - Recreational Drug Use Recreational Drug Use: No ED ROS GENERAL - Review of Systems Review Of Systems: See Below Constitutional: Reports: No Symptoms HEENT: Reports: No Symptoms Respiratory: Reports: Cough. Denies: Shortness of Breath, Wheezing, Pleuritic Chest Pain, Sputum, Hemoptysis Cardiovascular: Reports: Other (tachycardia) Endocrine: Reports: No Symptoms GI/Abdominal: Reports: Abdominal Pain (epigastric), Vomiting. Denies: Black Stool, Bloody Stool, Constipation, Diarrhea, Hematemesis, Hematochezia, Melena : Reports: No Symptoms Musculoskeletal: Reports: No Symptoms Skin: Reports: No Symptoms Neurological: Reports: No Symptoms ED EXAM, GENERAL - Physical Exam Exam: See Below Exam Limited By: No Limitations General Appearance: Alert, WD/WN, No Apparent Distress Eye Exam: Bilateral Eye: Normal Inspection Ears: Normal External Exam, Normal Canal, Hearing Grossly Normal Ear Exam: Bilateral Ear: Auricle Normal, Canal Normal Nose: Normal Inspection, No Blood Throat/Mouth: Normal Inspection, Normal Lips, Normal Oropharynx, Normal Voice, No Airway Compromise Head: Atraumatic, Normocephalic Neck: Normal Inspection Respiratory/Chest: No Respiratory Distress, No Accessory Muscle Use, Chest Non- Tender, Rales (diffusely) Cardiovascular: Regular Rate, Rhythm, No Edema, Tachycardia GI/Abdominal: Normal Bowel Sounds, Soft, Tender (epigastric tenderness). No: Non-Tender, Distended, Guarding, Rigid, Rebound, Hernia Back Exam: Normal Inspection. No: CVA Tenderness (R), CVA Tenderness (L) Extremities: Normal Inspection, Normal Range of Motion, Non-Tender, No Pedal Edema Neurological: Alert, Oriented, CN II-XII Intact, Normal Cognition, No Motor/ Sensory Deficits Psychiatric: Normal Affect, Normal Mood Skin Exam: Warm, Dry, Intact, Normal Color, No Rash Course - Vital Signs Text/Narrative:: GI cocktail po-partial relief. HR down about 25/min after a liter of LR Cough better, not gone, with Tessalon. Last Recorded V/S: Last Vital Signs Temp 36.8 C 11/23/19 20:35 Pulse 131 H 11/23/19 22:08 Resp 18 11/23/19 20:35 BP 132/80 11/23/19 22:08 Pulse Ox 94 L 11/23/19 22:08 - Orders/Labs/Meds Orders: Active Orders 24 hr Category Date Time Status RT Aerosol Therapy [RC] ASDIRECTED Care 11/23/19 20:55 Active RT Peak Flow Measurement [RC] ASDIRECTED Care 11/23/19 20:55 Active Chest 2V [CR] Stat Exams 11/23/19 21:35 Taken Codeine/guaiFENesin [Robitussin AC] Med 11/23/19 23:21 Once 10 ml PO ONETIME ONE Labs: Laboratory Tests 11/23/19 11/23/19 11/23/19 Range/Units 21:01 21:01 21:02 WBC 12.7 H (4.5-11.0) K/uL RBC 4.75 (3.30-5.50) M/uL Hgb 13.7 (12.0-15.0) g/dL Hct 41.0 (36.0-48.0) % MCV 86 (80-98) fL MCH 29 (27-31) pg MCHC 33 (32-36) % Plt Count 218 (150-400) K/uL D-Dimer, Quantitative < 100 (0.0-400.0) ng/mL Sodium 136 L (140-148) mmol/L Potassium 4.3 (3.6-5.2) mmol/L Chloride 102 (100-108) mmol/L Carbon Dioxide 22 (21-32) mmol/L Anion Gap 16.3 H (5.0-14.0) mmol/L BUN 13 (7-18) mg/dL Creatinine 1.0 (0.6-1.0) mg/dL Est Cr Clr Drug Dosing 62.31 mL/min Estimated GFR (MDRD) > 60 (>60) Glucose 155 H (74-106) mg/dL Lactic Acid (0.4-2.0) mmol/L Calcium 8.6 (8.5-10.1) mg/dL Lipase 85 (73-393) U/L TSH, Ultra Sensitive (0.358-3.740) uIU/mL Urine Color (YELLOW) Urine Appearance (CLEAR) Urine pH (5.0-8.0) Ur Specific [place] (1.008-1.030) Urine Protein (NEGATIVE) mg/dL Urine Glucose (UA) (NEGATIVE) mg/dL Urine Ketones (NEGATIVE) mg/dL Urine Occult Blood (NEGATIVE) Urine Nitrite (NEGATIVE) Urine Bilirubin (NEGATIVE) Urine Urobilinogen (0.2-1.0) EU/dL Ur Leukocyte Esterase (NEGATIVE) Urine RBC (0-5) Urine WBC (0-5) Ur Epithelial Cells Amorphous Sediment Urine Bacteria Urine Mucus Urine Opiates Screen (NEGATIVE) Ur Oxycodone Screen (NEGATIVE) Urine Methadone Screen (NEGATIVE) Ur Propoxyphene Screen (NEGATIVE) Ur Barbiturates Screen (NEGATIVE) Ur Tricyclics Screen (NEGATIVE) Ur Phencyclidine Scrn (NEGATIVE) Ur Amphetamine Screen (NEGATIVE) U Methamphetamines Scrn (NEGATIVE) Urine MDMA Screen (NEGATIVE) U Benzodiazepines Scrn (NEGATIVE) U Cocaine Metab Screen (NEGATIVE) U Marijuana (THC) Screen (NEGATIVE) 11/23/19 11/23/19 11/23/19 Range/Units 21:45 21:45 22:09 WBC (4.5-11.0) K/uL RBC (3.30-5.50) M/uL Hgb (12.0-15.0) g/dL Hct (36.0-48.0) % MCV (80-98) fL MCH (27-31) pg MCHC (32-36) % Plt Count (150-400) K/uL D-Dimer, Quantitative (0.0-400.0) ng/mL Sodium (140-148) mmol/L Potassium (3.6-5.2) mmol/L Chloride (100-108) mmol/L Carbon Dioxide (21-32) mmol/L Anion Gap (5.0-14.0) mmol/L BUN (7-18) mg/dL Creatinine (0.6-1.0) mg/dL Est Cr Clr Drug Dosing mL/min Estimated GFR (MDRD) (>60) Glucose (74-106) mg/dL Lactic Acid 3.7 H (0.4-2.0) mmol/L Calcium (8.5-10.1) mg/dL Lipase (73-393) U/L TSH, Ultra Sensitive 0.414 (0.358-3.740) uIU/mL Urine Color Yellow (YELLOW) Urine Appearance Clear (CLEAR) Urine pH 7.0 (5.0-8.0) Ur Specific [place] 1.025 (1.008-1.030) Urine Protein Negative (NEGATIVE) mg/dL Urine Glucose (UA) Negative (NEGATIVE) mg/dL Urine Ketones Negative (NEGATIVE) mg/dL Urine Occult Blood Negative (NEGATIVE) Urine Nitrite Negative (NEGATIVE) Urine Bilirubin Negative (NEGATIVE) Urine Urobilinogen 0.2 (0.2-1.0) EU/dL Ur Leukocyte Esterase Negative (NEGATIVE) Urine RBC 0-5 (0-5) Urine WBC 0-5 (0-5) Ur Epithelial Cells Many Amorphous Sediment Few Urine Bacteria Rare Urine Mucus Not seen Urine Opiates Screen (NEGATIVE) Ur Oxycodone Screen (NEGATIVE) Urine Methadone Screen (NEGATIVE) Ur Propoxyphene Screen (NEGATIVE) Ur Barbiturates Screen (NEGATIVE) Ur Tricyclics Screen (NEGATIVE) Ur Phencyclidine Scrn (NEGATIVE) Ur Amphetamine Screen (NEGATIVE) U Methamphetamines Scrn (NEGATIVE) Urine MDMA Screen (NEGATIVE) U Benzodiazepines Scrn (NEGATIVE) U Cocaine Metab Screen (NEGATIVE) U Marijuana (THC) Screen (NEGATIVE) 11/23/19 Range/Units 22:09 WBC (4.5-11.0) K/uL RBC (3.30-5.50) M/uL Hgb (12.0-15.0) g/dL Hct (36.0-48.0) % MCV (80-98) fL MCH (27-31) pg MCHC (32-36) % Plt Count (150-400) K/uL D-Dimer, Quantitative (0.0-400.0) ng/mL Sodium (140-148) mmol/L Potassium (3.6-5.2) mmol/L Chloride (100-108) mmol/L Carbon Dioxide (21-32) mmol/L Anion Gap (5.0-14.0) mmol/L BUN (7-18) mg/dL Creatinine (0.6-1.0) mg/dL Est Cr Clr Drug Dosing mL/min Estimated GFR (MDRD) (>60) Glucose (74-106) mg/dL Lactic Acid (0.4-2.0) mmol/L Calcium (8.5-10.1) mg/dL Lipase (73-393) U/L TSH, Ultra Sensitive (0.358-3.740) uIU/mL Urine Color (YELLOW) Urine Appearance (CLEAR) Urine pH (5.0-8.0) Ur Specific [place] (1.008-1.030) Urine Protein (NEGATIVE) mg/dL Urine Glucose (UA) (NEGATIVE) mg/dL Urine Ketones (NEGATIVE) mg/dL Urine Occult Blood (NEGATIVE) Urine Nitrite (NEGATIVE) Urine Bilirubin (NEGATIVE) Urine Urobilinogen (0.2-1.0) EU/dL Ur Leukocyte Esterase (NEGATIVE) Urine RBC (0-5) Urine WBC (0-5) Ur Epithelial Cells Amorphous Sediment Urine Bacteria Urine Mucus Urine Opiates Screen Negative (NEGATIVE) Ur Oxycodone Screen Negative (NEGATIVE) Urine Methadone Screen Negative (NEGATIVE) Ur Propoxyphene Screen Negative (NEGATIVE) Ur Barbiturates Screen Negative (NEGATIVE) Ur Tricyclics Screen Negative (NEGATIVE) Ur Phencyclidine Scrn Negative (NEGATIVE) Ur Amphetamine Screen Negative (NEGATIVE) U Methamphetamines Scrn Negative (NEGATIVE) Urine MDMA Screen Negative (NEGATIVE) U Benzodiazepines Scrn Presumptive positive H (NEGATIVE) U Cocaine Metab Screen Negative (NEGATIVE) U Marijuana (THC) Screen Negative (NEGATIVE) Meds: Medications Discontinued Medications Generic Name Dose Route Start Last Admin Trade Name Freq PRN Reason Stop Dose Admin Acetaminophen 1,000 mg 11/23/19 21:17 11/23/19 21:36 Tylenol Extra Strength PO 11/23/19 21:18 1,000 mg ONETIME ONE Administration Albuterol/Ipratropium 3 ml 11/23/19 20:55 11/23/19 21:09 Duoneb 3.0-0.5 Mg/3 Ml NEB 11/23/19 20:56 3 ml ONETIME ONE Administration Benzonatate 200 mg 11/23/19 22:34 11/23/19 22:47 Tessalon Perles PO 11/23/19 22:35 200 mg ONETIME ONE Administration Al Hydroxide/Mg Hydroxide 15 0 ml 11/23/19 20:54 11/23/19 21:09 ml/ Lidocaine HCl 15 ml PO 11/23/19 20:55 30 ml ONETIME ONE Administration Lactated Ringer's 1,000 mls @ 1,000 mls/hr 11/23/19 22:18 11/23/19 22:29 Ringers, Lactated IV 11/23/19 23:17 1,000 mls/hr BOLUS ONE Administration Sucralfate 1 gm 11/23/19 21:17 11/23/19 22:20 Carafate PO 11/23/19 21:18 1 gm ONETIME ONE Administration - Radiology Interpretation Free Text/Narrative:: CXR- Findings/Impression: Cardiovascular and mediastinum: Heart size and vasculature are normal in caliber and appearance. Mediastinum is within normal limits. Lungs and pleural spaces: Lungs are clear. No sign of infiltrate or mass. No sign of pleural effusion. No pneumothorax. Bones and soft tissues: No significant change. Dictated by Berry Matos MD @ Nov 23 2019 10:20PM (Electronic Signature) Departure - Departure Time of Disposition: 23:35 Disposition: Home, Self-Care 01 Condition: Fair Clinical Impression: Mild dehydration, Cough Gastritis Qualifiers: Gastritis type: unspecified gastritis Chronicity: acute Gastritis bleeding: without bleeding Qualified Code(s): K29.00 - Acute gastritis without bleeding - Discharge Information *PRESCRIPTION DRUG MONITORING PROGRAM REVIEWED*: No *COPY OF PRESCRIPTION DRUG MONITORING REPORT IN PATIENT ARBEN: No Prescriptions: Benzonatate [Tessalon Perle] 100 - 200 mg PO QID PRN #40 capsule PRN Reason: Cough Sucralfate [Carafate] 1 gm PO QID #100 tablet Instructions: Gastritis, Adult, [id number], Cough, Adult, [id number] Referrals: Marlee Cash PA-C [Primary Care Provider] - Forms: ED Department Discharge Additional Instructions: No smoking. Take Tessalon as directed for cough. Take Carafate 20 minutes before meals and at bedtime to heal your gastritis. Stop your prednisone as this is likely causing the gastritis. Drink enough fluids so your urine is light yellow in color. Avoid carbonated beverages, caffeine, ibuprofen, Aleve, or aspirin until your stomach has healed. Recheck with your doctor if not improving. Sepsis Event Note - Evaluation Sepsis Screening Result: No Definite Risk - Focused Exam Vital Signs: Vital Signs Temp Pulse Resp BP Pulse Ox 11/23/19 22:08 131 H 132/80 94 L 11/23/19 20:35 36.8 C 137 H 18 157/86 H 97 11/23/19 20:17 36.8 C 137 H 18 157/86 H 97 Date Exam was Performed: 11/23/19 Time Exam was Performed: 23:22 - My Orders Last 24 Hours: My Active Orders 11/23/19 20:55 RT Aerosol Therapy [RC] ASDIRECTED RT Peak Flow Measurement [RC] ASDIRECTED 11/23/19 21:35 Chest 2V [CR] Stat 11/23/19 23:21 Codeine/guaiFENesin [Robitussin AC] 10 ml PO ONETIME ONE - Assessment/Plan Last 24 Hours: My Active Orders 11/23/19 20:55 RT Aerosol Therapy [RC] ASDIRECTED RT Peak Flow Measurement [RC] ASDIRECTED 11/23/19 21:35 Chest 2V [CR] Stat 11/23/19 23:21 Codeine/guaiFENesin [Robitussin AC] 10 ml PO ONETIME ONE
[2019-11-23] MEDS ORDERED: Acetaminophen 500 MG Tab PO ONE (21:17)
[2019-11-23] MEDS ORDERED: Sucralfate 1 GM Tab PO ONE (21:17)
[2019-11-23 22:09] VITALS: BP 132/80; PULSE 131
[2019-11-23] MEDS ORDERED: Lactated Ringers 1,000 ML IV ONE (22:18)
[2019-11-23] MEDS ORDERED: Benzonatate 100 MG Cap PO ONE (22:34)
[2019-11-23] MEDS ORDERED: Codeine/guaiFENesin 100mg-10 MG/5 ML Syrup 10 ML Cup PO ONE (23:21)
--- NOTE | 2019-11-26 07:53 | CRLCR ---
----- ADDENDUM ----- Indication: Cough Technique: Chest 2 views Comparison: 09/08/2011 Findings/Impression: Cardiovascular and mediastinum: Heart size and vasculature are normal in caliber and appearance. Mediastinum is within normal limits. Lungs and pleural spaces: Lungs are clear. No sign of infiltrate or mass. No sign of pleural effusion. No pneumothorax. Bones and soft tissues: No significant change. Dictated by Berry Matos MD @ Nov 23 2019 10:20PM Signed by: Berry Matos MD @11/23/2019 10:21:58 PM (Electronic Signature) MTDD
== END 2019-11-23 23:42 | disposition home or self-care (01) ==
LOC: JP.ED 19:47
DX: E86.0 Dehydration (principal); R05 Cough; K29.00 Acute gastritis without bleeding; F17.210 Nicotine dependence, cigarettes, uncomplicated; Z88.8 Allergy status to other drugs, medicaments and biological substances
CPT/HCPCS: 36415; 71046; 80048; 80305; 81001; 83605; 83690; 84443; 85027; 85379; 94640; 96360; 99284; A9270; J7120; J7620-GY

== ENCOUNTER 2020-01-18 07:37 | Day surgery (SDC) | payer MEDICARE, MEDICAID ==
[2020-01-18] MEDS ORDERED: Midazolam 1 MG/ML 2 ML SDV ONE (07:54)
[2020-01-18] MEDS ORDERED: fentaNYL 100 MCG/2 ML SDV ONE (07:54)
[2020-01-18] MEDS ORDERED: Propofol 200 MG/20 ML SDV ONE (07:54)
[2020-01-18] MEDS ORDERED: Dextrose 5%-Lactated Ringers 1,000 ML IV SCH (08:00)
[2020-01-18] MEDS ORDERED: Glycopyrrolate 0.2 MG/ML 2 ML SDV IVPUSH ONE (08:30)
[2020-01-18 10:03] VITALS: PULSE 102
[2020-01-18 10:36] VITALS: BP 127/77
--- NOTE | 2020-01-28 13:48 | OR ---
DATE OF PROCEDURE: 01/18/2020 SURGEON: Kvng Gonzalez MD PREOPERATIVE DIAGNOSIS: Postprandial bloating and epigastric discomfort. POSTOPERATIVE DIAGNOSES: 1. Postprandial bloating and epigastric discomfort. 2. Large gastric bezoar/retained gastric bile. 3. Mild diffuse gastritis secondary to retained gastric bile. OPERATIVE PROCEDURE: Esophagogastroduodenoscopy with antral biopsies for CLOtest. ANESTHESIA: IV sedation. INDICATION FOR PROCEDURE: This is a 24-year-old female presenting with some postprandial bloating, epigastric pain, and some degree of heartburn. She recently was started on Protonix, but did not notice any improvement in the symptoms. The plan is to proceed with an upper GI endoscopy with biopsies as indicated. Potential risks including bleeding and perforation were discussed, and the patient wishes to proceed. DETAILS OF PROCEDURE: The patient was taken to the operating room and placed in a left lateral decubitus position. IV sedation was administered, after which the upper GI endoscope was passed orally through the length of the esophagus into the stomach with retroflexion view of the fundus, and thereafter through the pyloric channel and into the junction of the 3rd and 4th portions of the duodenum. Findings included normal hypopharynx, larynx, upper esophageal sphincter, and esophageal body. No significant hiatal hernia was present and there was no evident esophagitis. As one entered the stomach, there was a fairly large bezoar present along with general retention of a fairly large amount of bile and this was associated with a mild diffuse redness of the stomach, likely related to the retained bile. As one passed through the pyloric channel, the pyloric channel and visualized portions of the duodenum were unremarkable. At this point, biopsies were taken from the antrum and sent for CLOtest for H. pylori. Minimal bleeding from the biopsy site was seen and the procedure then concluded. The overall finding would imply impaired gastric emptying. At this age, one wonders whether this might be some medication side effect. The patient and her mother will be instructed postprocedure with dietary, on an anti-bezoar diet. At this point, I will not start the patient on any prokinetic agents, which could otherwise include Reglan and erythromycin or Zithromax. One might consider medication review to see if any of her current medications are associated with significant impairment of gastric emptying. The patient will be instructed to follow up with Marlee Cash PA-C, at [facility]. Kvng Gonzalez MD /[id number]
== END 2020-01-18 10:33 | disposition home or self-care (01) ==
LOC: JP.SDS 07:37
PROVIDERS: ATTEND Surgery
DX: K29.70 Gastritis, unspecified, without bleeding (principal); K31.89 Other diseases of stomach and duodenum
CPT/HCPCS: 43239; 81025; 87081; J2250; J2704; J3010; J3490; J7121

== ENCOUNTER 2020-07-16 17:57 | Emergency (ER) | payer MEDICARE, MEDICAID ==
[2020-07-16 18:17] VITALS: BP 141/95; PULSE 103
--- NOTE | 2020-07-16 19:19 | EDM.PDOC ---
ED HPI GENERAL MEDICAL PROBLEM - General Chief Complaint: General Stated Complaint: VAGINAL BLEEDING Time Seen by Provider: 07/16/20 18:30 Source of Information: Reports: Patient, Family History Limitations: Reports: No Limitations - History of Present Illness INITIAL COMMENTS - FREE TEXT/NARRATIVE: 25-year-old female who is struggling with anovulatory, irregular menstrual cycl es and is being worked up and evaluated at the clinic. She has an ultrasound scheduled for early next week. Today she passed some dark clots, felt lightheaded so wanted to be evaluated. She also has some vague lower abdominal discomfort, no fevers or chills. Mild urinary urgency but no dysuria. Onset: Unknown/Unsure (Symptoms have been ongoing for several weeks) Associated Symptoms: Reports: Malaise, Weakness, Other (Lightheaded when standing). Denies: Chest Pain, Cough, Fever/Chills, Headaches, Nausea/Vomiting Pelvic Pain Score (Numeric/FACES): 6 - Related Data Allergies Allergy/AdvReac Type Severity Reaction Status Date / Time risperidone [From Risperdal] AdvReac Delusions Verified 11/23/19 20:32 Home Meds: Home Meds LORazepam 1 mg PO QID PRN 06/27/19 [History] cloZAPine 125 mg PO BEDTIME 06/27/19 [History] Pantoprazole Sodium [Protonix] 40 mg PO DAILY 01/15/20 [History] Metoprolol Succinate 25 mg PO QPM 07/16/20 [History] Past Medical History HEENT History: Reports: None Cardiovascular History: Reports: Other (See Below) Other Cardiovascular History: high pulse rate-? 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: Psychiatric History: Reports: Addiction, Anxiety, Bipolar, Panic Attack, Psych Hospitalization(s), Schizophrenia Endocrine/Metabolic History: Reports: Obesity/BMI 30+ - Infectious Disease History Infectious Disease History: Reports: Chicken Pox - Past Surgical History Head Surgeries/Procedures: Reports: None HEENT Surgical History: Reports: Oral Surgery Cardiovascular Surgical History: Reports: None Respiratory Surgical History: Reports: None GI Surgical History: Reports: None Endocrine Surgical History: Reports: None Dermatological Surgical History: Reports: None Social & Family History - Family History Family Medical History: Noncontributory - Tobacco Use Smoking Status *Q: Current Every Day Smoker Years of Tobacco use: 12 Packs/Tins Daily: 0.5 - Caffeine Use Caffeine Use: Reports: None - Recreational Drug Use Recreational Drug Use: No ED ROS GENERAL - Review of Systems Review Of Systems: See Below Constitutional: Reports: Malaise. Denies: Fever, Chills HEENT: Reports: No Symptoms Respiratory: Denies: Shortness of Breath Cardiovascular: Denies: Chest Pain GI/Abdominal: Reports: Abdominal Pain. Denies: Nausea, Vomiting : Reports: Urgency Skin: Reports: No Symptoms Neurological: Reports: Dizziness Psychiatric: Reports: Other (Bipolar history, stable) ED EXAM, GENERAL - Physical Exam Exam: See Below Exam Limited By: No Limitations General Appearance: Alert, No Apparent Distress Eye Exam: Bilateral Eye: Normal Inspection Head: Atraumatic Respiratory/Chest: No Respiratory Distress, Lungs Clear Cardiovascular: Regular Rate, Rhythm GI/Abdominal: Soft, Tender (Some vague tenderness to palpation across the lower abdomen in the no focal guarding or rebound) Neurological: Alert, Oriented Psychiatric: Normal Affect, Normal Mood Course - Vital Signs Last Recorded V/S: Last Vital Signs Temp 97.3 F 07/16/20 18:28 Pulse 103 H 07/16/20 18:28 Resp 16 07/16/20 18:28 BP 141/95 H 07/16/20 18:28 Pulse Ox 96 07/16/20 18:28 - Orders/Labs/Meds Labs: Laboratory Tests 07/16/20 07/16/20 07/16/20 Range/Units 18:42 18:55 18:55 WBC 7.3 (4.5-11.0) K/uL RBC 5.00 (3.30-5.50) M/uL Hgb 14.4 (12.0-15.0) g/dL Hct 42.8 (36.0-48.0) % MCV 86 (80-98) fL MCH 29 (27-31) pg MCHC 34 (32-36) % Plt Count 186 (150-400) K/uL Neut % (Auto) 63 (36-66) % Lymph % (Auto) 27 (24-44) % [place] % (Auto) 8 H (2-6) % Eos % (Auto) 1 L (2-4) % Baso % (Auto) 0 (0-1) % HCG, Qual Negative Urine Color Yellow (YELLOW) Urine Appearance Slightly cloudy A (CLEAR) Urine pH 6.5 (5.0-8.0) Ur Specific [place] 1.020 (1.008-1.030) Urine Protein Negative (NEGATIVE) mg/dL Urine Glucose (UA) Negative (NEGATIVE) mg/dL Urine Ketones Negative (NEGATIVE) mg/dL Urine Occult Blood Negative (NEGATIVE) Urine Nitrite Negative (NEGATIVE) Urine Bilirubin Negative (NEGATIVE) Urine Urobilinogen 0.2 (0.2-1.0) EU/dL Ur Leukocyte Esterase Negative (NEGATIVE) Urine RBC 0-5 (0-5) Urine WBC 0-5 (0-5) Ur Epithelial Cells Moderate Urine Bacteria Many Urine Mucus Not seen - Re-Assessments/Exams Free Text/Narrative Re-Assessment/Exam: 07/16/20 20:59 UA was obtained by clean-catch, CBC and qualitative serum beta-hCG was drawn. Hemoglobin and white count were normal, hCG was 0. Urine was clear. Patient was reassured and will follow-up at the clinic as scheduled. Departure - Departure Time of Disposition: 19:24 Disposition: Home, Self-Care 01 Clinical Impression: Dysfunctional uterine bleeding - Discharge Information Instructions: Abnormal Uterine Bleeding Referrals: Marlee Cash PA-C [Primary Care Provider] - Forms: ED Department Discharge Care Plan Goals: Activity as tolerated, follow-up with your primary provider for ultrasound and rechecks as scheduled. Return sooner if worsening such as fever or increased pain. Sepsis Event Note (ED) - Evaluation Sepsis Screening Result: No Definite Risk - Focused Exam Vital Signs: Vital Signs Temp Pulse Resp BP Pulse Ox 07/16/20 18:28 97.3 F 103 H 16 141/95 H 96 07/16/20 18:16 97.3 F 103 H 16 141/95 H 96
== END 2020-07-16 19:26 | disposition home or self-care (01) ==
LOC: JP.ED 17:57
DX: N93.8 Other specified abnormal uterine and vaginal bleeding (principal); E66.9 Obesity, unspecified; Z68.34 Body mass index [BMI] 34.0-34.9, adult; F17.210 Nicotine dependence, cigarettes, uncomplicated; Z88.8 Allergy status to other drugs, medicaments and biological substances; Z79.899 Other long term (current) drug therapy
CPT/HCPCS: 36415; 81001; 84703; 85025; 99284

== ENCOUNTER 2020-09-09 09:41 | Day surgery (SDC) | payer MEDICARE, MEDICAID ==
[2020-09-09] MEDS ORDERED: Dextrose 5%-Lactated Ringers 1,000 ML IV SCH (10:15)
[2020-09-09] MEDS ORDERED: fentaNYL 100 MCG/2 ML SDV ONE (10:41)
[2020-09-09] MEDS ORDERED: Propofol 200 MG/20 ML SDV ONE (10:41)
[2020-09-09] MEDS ORDERED: Ondansetron 4 MG/2 ML SDV ONE (10:41)
[2020-09-09] MEDS ORDERED: Midazolam 1 MG/ML 2 ML SDV ONE (10:41)
[2020-09-09] MEDS ORDERED: Glycopyrrolate 0.2 MG/ML 2 ML SDV IVPUSH ONE (11:00)
[2020-09-09 13:20] VITALS: BP 117/77; PULSE 112
--- NOTE | 2020-09-16 15:45 | OR ---
DATE OF PROCEDURE: 09/09/2020 SURGEON: Kvng Gonzalez MD PREOPERATIVE DIAGNOSIS: Persistent epigastric discomfort with history of gastric bezoars. POSTOPERATIVE DIAGNOSIS: Large volume of retained gastric contents (bezoar) consistent with gastroparesis refractory to medical management. OPERATIVE PROCEDURE: Esophagogastroduodenoscopy with: 1. Partial evacuation of gastric bezoar contents (70936). 2. Biopsies of the antrum for CLOtest ([id number]). ANESTHESIA: General. INDICATIONS FOR PROCEDURE: This is a 25-year-old presenting with some persistent epigastric discomfort. She is noted to have some bezoar formation and is better on a course of Zithromax in order to augment gastric emptying. Despite that, she continued to be quite symptomatic, and a followup upper endoscopy is to be performed at this time. Potential risks of procedure including bleeding and perforation were discussed, and the patient wishes to proceed. DETAILS OF PROCEDURE: The patient was taken to the operating room, placed in a left lateral decubitus position. IV sedation was administered, after which the upper GI endoscope was passed orally through the length of the esophagus and into the stomach with retroflexion view of the fundus, and thereafter through the pyloric channel and into the proximal duodenum. Findings included some redness and retained food within the distal esophagus consistent with ongoing bezoar formation within the stomach. There was a quite large amount of bezoar present in the stomach. This was evacuated by means of . It was quite friable, and at that point it was felt unlikely to be successful and may need for a stent. There is some general redness in the stomach related to bezoar present. Biopsies were obtained from the antrum once again to assess the patient's H pylori status. No bleeding from the biopsy sites was seen and the pyloric channel was confirmed to be nonobstructive and visualized portion of the duodenum was unremarkable. At this point, the scope was then withdrawn and the procedure then concluded. The patient was taken to the recovery room in satisfactory condition. PLAN: Plan will be to see the patient back next week along with her mother to discuss treatment options. The patient really at this point has gastroparesis that is refractory to medical management. This may be related to some of her psychiatric medications as she does not have an overt diagnosis of diabetes, but at this point, the medical management appeared to be failed they have been trying to maintain an anti-bezoar type diet in addition to the Zithromax. We will see the patient back next week to discuss treatment options. Kvng Gonzalez MD /[phone]
== END 2020-09-09 13:30 | disposition home or self-care (01) ==
LOC: JP.SDS 09:41
PROVIDERS: ATTEND Surgery
DX: T18.2XXA Foreign body in stomach, initial encounter (principal); J45.909 Unspecified asthma, uncomplicated; E66.9 Obesity, unspecified; Z88.8 Allergy status to other drugs, medicaments and biological substances; Z68.33 Body mass index [BMI] 33.0-33.9, adult
CPT/HCPCS: 43239; 43247; 81025; 87081; J2250; J2405; J2704; J3010; J3490; J7121

== ENCOUNTER 2021-08-28 10:37 | Emergency (ER) | payer MEDICARE, MEDICAID ==
[2021-08-28 10:54] VITALS: BP 129/100; PULSE 113
--- NOTE | 2021-08-28 11:23 | EDM.PDOCBH ---
ED HPI GENERAL MEDICAL PROBLEM - General Chief Complaint: Behavioral/Psych Stated Complaint: MEDICAL VIA [facility] Time Seen by Provider: 08/28/21 10:59 Source of Information: Reports: Patient, Family, Old Records, RN Notes Reviewed History Limitations: Reports: No Limitations - History of Present Illness INITIAL COMMENTS - FREE TEXT/NARRATIVE: 26-year-old female presents to the emergency department for mental health. She has known history of schizophrenia is taking clozapine however per report from her mental health provider and mom she is intermittently taking this medication mom states that she has had decreased oral intake has not taken food some water has not showered for several weeks. Has worked with her healthcare provider to get further treatment however family has declined thus far. Decided to bring her to the emergency department via EMS services for evaluation denies depression denies any suicidal ideation homicidal ideation - Related Data Allergies Allergy/AdvReac Type Severity Reaction Status Date / Time risperidone [From Risperdal] AdvReac Delusions Verified 08/28/21 10:46 Home Meds: Home Meds cloZAPine 125 mg PO BEDTIME 06/27/19 [History] Pantoprazole Sodium [Protonix] 40 mg PO DAILY 01/15/20 [History] Metoprolol Succinate 25 mg PO QPM 07/16/20 [History] Azithromycin 125 mg PO DAILY 09/09/20 [History] Past Medical History Cardiovascular History: Reports: Other (See Below) Other Cardiovascular History: high pulse rate-? r/t medications Respiratory History: Reports: Bronchitis, Recurrent Gastrointestinal History: Reports: Chronic Constipation, Chronic Diarrhea, Gastritis CORPORATE RISK ANALYST History: Reports: , Other (See Below) Other CORPORATE RISK ANALYST History: heavy bleeding and clotting Psychiatric History: Reports: Addiction, Anxiety, Bipolar, Panic Attack, Psych Hospitalization(s), Schizophrenia Endocrine/Metabolic History: Reports: Obesity/BMI 30+ Hematologic History: Reports: Other (See Below) Other Hematologic History: large uterine clots frequently - Infectious Disease History Infectious Disease History: Reports: Chicken Pox - Past Surgical History Head Surgeries/Procedures: Reports: None HEENT Surgical History: Reports: Oral Surgery Other HEENT Surgeries/Procedures: tooth pulled Cardiovascular Surgical History: Reports: None Respiratory Surgical History: Reports: None GI Surgical History: Reports: None Endocrine Surgical History: Reports: None Dermatological Surgical History: Reports: None Social & Family History - Family History Family Medical History: No Pertinent Family History - Tobacco Use Tobacco Use Status *Q: Current Every Day Tobacco User Years of Tobacco use: 10 Packs/Tins Daily: 0.5 Used Tobacco, but Quit: No - Caffeine Use Caffeine Use: Reports: Soda Caffeine Use Comment: 2 bottles daily - Recreational Drug Use Recreational Drug Use: No ED ROS GENERAL - Review of Systems Review Of Systems: See Below Constitutional: Reports: No Symptoms HEENT: Reports: No Symptoms Respiratory: Reports: No Symptoms Cardiovascular: Reports: No Symptoms Endocrine: Reports: No Symptoms GI/Abdominal: Reports: No Symptoms : Reports: No Symptoms Musculoskeletal: Reports: No Symptoms Psychiatric: Reports: No Symptoms. Denies: Depression, Homicidal Ideation, Suicidal Ideation ED EXAM, BEHAVIORAL HEALTH - Physical Exam Exam: See Below Text/Narrative:: Orientated to person place and time, appropriately dressed, poorly groomed, memory to recent and remote events intact, good attention and concentration, speech is of adequate rate tone and volume, good fund of knowledge, language is appropriate, Mood and affect are depressed, no pressured thoughts, denies suicidal ideation, denies homicidal ideation, no hallucinations visual or auditory, poor judgment, poor insight Exam Limited By: No Limitations General Appearance: Alert, WD/WN, No Apparent Distress Eye Exam: Bilateral Eye: Normal Inspection Respiratory/Chest: No Respiratory Distress, Lungs Clear, Normal Breath Sounds, No Accessory Muscle Use, Chest Non-Tender Cardiovascular: Regular Rate, Rhythm, No Murmur GI/Abdominal: Soft, Non-Tender COURSE, BEHAVIORAL HEALTH COMP - Course Vital Signs: Last Vital Signs Temp 98.1 F 08/28/21 10:50 Pulse 113 H 08/28/21 10:50 Resp 17 08/28/21 10:50 BP 129/100 H 08/28/21 10:50 Pulse Ox 98 08/28/21 10:50 Orders, Labs, Meds: Active Orders 24 hr Category Date Time Status CULTURE URINE [RM] Urgent Lab 08/28/21 11:28 Received Laboratory Tests 08/28/21 08/28/21 08/28/21 Range/Units 11:15 11:15 11:15 WBC 4.5 (4.5-11.0) K/uL RBC 5.27 (3.30-5.50) M/uL Hgb 15.0 (12.0-15.0) g/dL Hct 43.9 (36.0-48.0) % MCV 83 (80-98) fL MCH 29 (27-31) pg MCHC 34 (32-36) % Plt Count 165 (150-400) K/uL Neut % (Auto) 49.8 (36-66) % Lymph % (Auto) 39.9 (24-44) % [place] % (Auto) 8.5 H (2-6) % Eos % (Auto) 1.6 L (2-4) % Baso % (Auto) 0.2 (0-1) % Sodium 140 (140-148) mmol/L Potassium 4.1 (3.6-5.2) mmol/L Chloride 102 (100-108) mmol/L Carbon Dioxide 24 (21-32) mmol/L Anion Gap 14.3 H (5.0-14.0) mmol/L BUN 12 (7-18) mg/dL Creatinine 0.9 (0.6-1.0) mg/dL Est Cr Clr Drug Dosing 71.48 mL/min Estimated GFR (MDRD) > 60 (>60) Glucose 83 (74-106) mg/dL Calcium 9.4 (8.5-10.1) mg/dL Total Bilirubin 0.7 (0.2-1.0) mg/dL AST 9 L (15-37) U/L ALT 7 L (12-78) U/L Alkaline Phosphatase 84 (46-116) U/L Total Protein 6.9 (6.4-8.2) g/dL Albumin 4.3 (3.4-5.0) g/dL Globulin 2.6 (2.3-3.5) g/dL Albumin/Globulin Ratio 1.7 (1.2-2.2) TSH, Ultra Sensitive (0.358-3.740) uIU/mL Urine Color (YELLOW) Urine Appearance (CLEAR) Urine pH (5.0-8.0) Ur Specific [place] (1.008-1.030) Urine Protein (NEGATIVE) mg/dL Urine Glucose (UA) (NEGATIVE) mg/dL Urine Ketones (NEGATIVE) mg/dL Urine Occult Blood (NEGATIVE) Urine Nitrite (NEGATIVE) Urine Bilirubin (NEGATIVE) Urine Urobilinogen (0.2-1.0) EU/dL Ur Leukocyte Esterase (NEGATIVE) Urine RBC (0-5) Urine WBC (0-5) Ur Epithelial Cells Amorphous Sediment Urine Bacteria Urine Mucus Urine Opiates Screen (NEGATIVE) Ur Oxycodone Screen (NEGATIVE) Urine Methadone Screen (NEGATIVE) Ur Propoxyphene Screen (NEGATIVE) Ur Barbiturates Screen (NEGATIVE) Ur Tricyclics Screen (NEGATIVE) Ur Phencyclidine Scrn (NEGATIVE) Ur Amphetamine Screen (NEGATIVE) U Methamphetamines Scrn (NEGATIVE) Urine MDMA Screen (NEGATIVE) U Benzodiazepines Scrn (NEGATIVE) U Cocaine Metab Screen (NEGATIVE) U Marijuana (THC) Screen (NEGATIVE) Ethyl Alcohol < 3 mg/dL 08/28/21 08/28/21 08/28/21 Range/Units 11:15 11:28 11:28 WBC (4.5-11.0) K/uL RBC (3.30-5.50) M/uL Hgb (12.0-15.0) g/dL Hct (36.0-48.0) % MCV (80-98) fL MCH (27-31) pg MCHC (32-36) % Plt Count (150-400) K/uL Neut % (Auto) (36-66) % Lymph % (Auto) (24-44) % [place] % (Auto) (2-6) % Eos % (Auto) (2-4) % Baso % (Auto) (0-1) % Sodium (140-148) mmol/L Potassium (3.6-5.2) mmol/L Chloride (100-108) mmol/L Carbon Dioxide (21-32) mmol/L Anion Gap (5.0-14.0) mmol/L BUN (7-18) mg/dL Creatinine (0.6-1.0) mg/dL Est Cr Clr Drug Dosing mL/min Estimated GFR (MDRD) (>60) Glucose (74-106) mg/dL Calcium (8.5-10.1) mg/dL Total Bilirubin (0.2-1.0) mg/dL AST (15-37) U/L ALT (12-78) U/L Alkaline Phosphatase (46-116) U/L Total Protein (6.4-8.2) g/dL Albumin (3.4-5.0) g/dL Globulin (2.3-3.5) g/dL Albumin/Globulin Ratio (1.2-2.2) TSH, Ultra Sensitive 1.358 (0.358-3.740) uIU/mL Urine Color Yellow (YELLOW) Urine Appearance Cloudy A (CLEAR) Urine pH 5.5 (5.0-8.0) Ur Specific [place] >= 1.030 (1.008-1.030) Urine Protein 30 H (NEGATIVE) mg/dL Urine Glucose (UA) Negative (NEGATIVE) mg/dL Urine Ketones Negative (NEGATIVE) mg/dL Urine Occult Blood Negative (NEGATIVE) Urine Nitrite Negative (NEGATIVE) Urine Bilirubin Moderate H (NEGATIVE) Urine Urobilinogen 0.2 (0.2-1.0) EU/dL Ur Leukocyte Esterase Negative (NEGATIVE) Urine RBC 0-5 (0-5) Urine WBC 10-20 H (0-5) Ur Epithelial Cells Many Amorphous Sediment Few Urine Bacteria Moderate Urine Mucus Moderate Urine Opiates Screen Negative (NEGATIVE) Ur Oxycodone Screen Negative (NEGATIVE) Urine Methadone Screen Negative (NEGATIVE) Ur Propoxyphene Screen Negative (NEGATIVE) Ur Barbiturates Screen Negative (NEGATIVE) Ur Tricyclics Screen Negative (NEGATIVE) Ur Phencyclidine Scrn Negative (NEGATIVE) Ur Amphetamine Screen Negative (NEGATIVE) U Methamphetamines Scrn Negative (NEGATIVE) Urine MDMA Screen Negative (NEGATIVE) U Benzodiazepines Scrn Negative (NEGATIVE) U Cocaine Metab Screen Negative (NEGATIVE) U Marijuana (THC) Screen Negative (NEGATIVE) Ethyl Alcohol mg/dL Departure - Departure Time of Disposition: 14:21 Disposition: Home, Self-Care 01 Condition: Poor Clinical Impression: Schizophrenia Qualifiers: Schizophrenia type: disorganized schizophrenia Qualified Code(s): F20.1 - Disorganized schizophrenia - Discharge Information Instructions: Schizophrenia Referrals: Nae Almonte PA-C [Primary Care Provider] - Forms: ED Department Discharge Additional Instructions: Home care nurse will do an evaluation tomorrow, [facility] will continue working on long-term placement plan, the urine culture is pending this should be available in about 3 days if it is consistent with infection antibiotics will be prescribed Sepsis Event Note (ED) - Evaluation Sepsis Screening Result: No Definite Risk - Focused Exam Vital Signs: Vital Signs Temp Pulse Resp BP Pulse Ox 08/28/21 10:50 98.1 F 113 H 17 129/100 H 98 08/28/21 10:45 98.1 F 113 H 17 129/100 H 98 - My Orders Last 24 Hours: My Active Orders 08/28/21 11:28 CULTURE URINE [RM] Urgent - Assessment/Plan Last 24 Hours: My Active Orders 08/28/21 11:28 CULTURE URINE [RM] Urgent Plan: Assessment Acuity = acute Site and laterality = schizophrenia Etiology = medical compliance Manifestations = none Location of injury = Home Lab values = CBC, CMP unremarkable, urinalysis does have 10-20 WBCs with pyuria and moderate amount of bacteria however specific gravity 1.03 consistent with intravascular volume repletion culture is pending Plan Discharge planning did help placement, [facility] is currently working on long-term placement for the schizophrenia to help with medical compliance and her mental health. At this time I did not feel the need for medical hold and would have difficulty getting placement from the emergency department for noncompliance with schizophrenia. Discharge planning was very helpful in arranging a home care nurse to check on her tomorrow and then appointment with on Tuesday, continue to work with long-term placement plan, urine cultures pending if this does not prove to be urinary tract infection will provide This note was dictated using [employer] voice recognition software please call with any questions on syntax or grammar.
== END 2021-08-28 14:35 | disposition home or self-care (01) ==
LOC: JP.ED 10:37
DX: F20.1 Disorganized schizophrenia (principal); E66.9 Obesity, unspecified; Z68.24 Body mass index [BMI] 24.0-24.9, adult; Z72.0 Tobacco use; Z88.8 Allergy status to other drugs, medicaments and biological substances; Z79.899 Other long term (current) drug therapy
CPT/HCPCS: 36415; 80053; 80305-QW; 80307; 81001; 84443; 85025; 87086; 99284

== ENCOUNTER 2021-09-09 15:33 | Emergency (ER) | payer MEDICARE, MEDICAID ==
--- NOTE | 2021-09-09 17:42 | EDM.PDOCBH ---
<OneilSonia - Last Filed: 09/10/21 04:46> ED HPI GENERAL MEDICAL PROBLEM - General Chief Complaint: Behavioral/Psych Stated Complaint: DEHYDRATED,MENTAL HEALTH EVAL Time Seen by Provider: 09/09/21 17:38 - Related Data Allergies Allergy/AdvReac Type Severity Reaction Status Date / Time risperidone [From Risperdal] AdvReac Delusions Verified 09/09/21 16:45 Home Meds: Home Meds cloZAPine 125 mg PO BEDTIME 06/27/19 [History] Pantoprazole Sodium [Protonix] 40 mg PO DAILY 01/15/20 [History] OLANZapine [Olanzapine Odt] 5 mg PO BEDTIME #30 tab.rapdis 09/15/21 [Rx] COURSE, BEHAVIORAL HEALTH COMP - Course Medical Clearance: 09/09/21 19:[address] Officer, ER at change of shift/transfer of care. chart to be sent to [facility] unit for review. Hoping for acceptance for medication management/adjustment to stabilize her chronic schitzophrenia. This has been recommended by her outpatient psychiatrist as patient has been noncompliant with medications for unknown timeframe, not caring for self appropriately (not bathing/dishelved appearance, ?-able eating/drinking although labs do not indicated any acute concerns with dehydration but patient was given 1L NS bolus as she states she was dehydrated and could not drink because of this). Labs have been reviewed during change of shift discussion. Patient is medically cleared at this time for psychiatric placement Discharge vs Psych Eval/Treatment:: 09/10/21 04:47 [facility] unit has accepted at this time, accepting physician is Dr Blood. Departure - Departure Time of Disposition: 04:46 Disposition: Home, Self-Care 01 Clinical Impression: Noncompliance with medication regimen, Mild dehydration Schizophrenia Qualifiers: Schizophrenia type: disorganized schizophrenia Qualified Code(s): F20.1 - Disorganized schizophrenia - Discharge Information Prescriptions: OLANZapine [Olanzapine Odt] 5 mg PO BEDTIME #30 tab.rapdis Instructions: Managing Schizophrenia, Supporting Someone With Schizophrenia Referrals: Nae Almonte PA-C [Primary Care Provider] - Forms: ED Department Discharge Care Plan Goals: Continue taking the olanzapine 1 tablet at bedtime to treat your schizophrenia. NOT TAKING A DOSE IS NOT AND OPTION!! Follow-up with your primary provider as soon as possible. <OfficerEfren - Last Filed: 09/15/21 16:52> ED HPI GENERAL MEDICAL PROBLEM - General Source of Information: Reports: Patient, Family, Old Records, RN Notes Reviewed History Limitations: Reports: Physical Impairment - History of Present Illness INITIAL COMMENTS - FREE TEXT/NARRATIVE: 26-year-old female presents emergency department today for further mental health evaluation, she has known history of schizophrenia follows with mental health in the clinic she has been on a decline for the last several weeks has had poor oral intake is very unkempt has refused to shower or get out of bed does admit to depression was evaluated by myself 2 weeks ago we tried to do an admission at that time but were unsuccessful with placement caregiver decided to take her home and continue to work with outpatient services. Unfortunately the county or any outpatient services have been initiated. Reviewing notes from both her primary care provider and her mental health provider feel that she needs hospitalization however they will continue to work on that. None of this has come to fruition at this time. When asked she denies any suicidal ideation any homicidal ideation she does admit to being depressed she has a very flat affect gets into repeated questions stating she needs to go to the emergency department in [place] because she is dehydrated she is unable to eat or drink because she is dehydrated. Difficult to obtain any review of systems from her due to her current state. She has declined significantly from the last time I interviewed her on the on 28 August 0 Pain Score (Numeric/FACES): 8 Past Medical History Cardiovascular History: Reports: Other (See Below) Other Cardiovascular History: high pulse rate-? r/t medications Respiratory History: Reports: Bronchitis, Recurrent Gastrointestinal History: Reports: Chronic Constipation, Chronic Diarrhea, Gastritis CLINICAL SUPPORT NURSE History: Reports: Other (See Below) Other CLINICAL SUPPORT NURSE History: heavy bleeding and clotting Psychiatric History: Reports: Addiction, Anxiety, Bipolar, Panic Attack, Psych Hospitalization(s), Schizophrenia Endocrine/Metabolic History: Reports: Obesity/BMI 30+ Hematologic History: Reports: Other (See Below) Other Hematologic History: large uterine clots frequently - Infectious Disease History Infectious Disease History: Reports: Chicken Pox - Past Surgical History Head Surgeries/Procedures: Reports: None HEENT Surgical History: Reports: Oral Surgery Other HEENT Surgeries/Procedures: tooth pulled Cardiovascular Surgical History: Reports: None Respiratory Surgical History: Reports: None GI Surgical History: Reports: None Endocrine Surgical History: Reports: None Dermatological Surgical History: Reports: None Social & Family History - Family History Family Medical History: No Pertinent Family History - Tobacco Use Tobacco Use Status *Q: Former Tobacco User Used Tobacco, but Quit: Yes Month/Year Tobacco Last Used: 2010 Second Hand Smoke Exposure: No - Caffeine Use Caffeine Use: Reports: Soda Other Caffeine Use: Sprite X1 large Caffeine Use Comment: 2 bottles daily - Recreational Drug Use Recreational Drug Use: No ED ROS GENERAL - Review of Systems Review Of Systems: Unable To Obtain Reason Not Obtained: Psychotic state ED EXAM, BEHAVIORAL HEALTH - Physical Exam Exam: See Below Text/Narrative:: Orientated to person only is confused about place and time, appropriately dressed, poorly groomed, memory to recent and remote events limited, good attention and concentration, speech is of adequate reduced tone and volume, poor fund of knowledge, language is appropriate, Mood and affect are depressed, no pressured thoughts, denies suicidal ideation, denies homicidal ideation, no hallucinations visual or auditory, poor judgment, poor insight Exam Limited By: Physical Impairment General Appearance: Alert, No Apparent Distress Eye Exam: Bilateral Eye: Normal Inspection Respiratory/Chest: No Respiratory Distress, Lungs Clear, Normal Breath Sounds, No Accessory Muscle Use, Chest Non-Tender Cardiovascular: Regular Rate, Rhythm, No Murmur GI/Abdominal: Soft, Non-Tender COURSE, BEHAVIORAL HEALTH COMP - Course Re-Assessment/Re-Exam: Randy Moreland declined admission felt this was more of medical problem rather than a psychiatric problem, we are going to attempt to do a psychiatric consult via telemedicine today. Took over care at 7 AM, will continue with evaluation for failure to thrive consultations from PT OT and speech therapy have been ordered today patient remains stable vitally minimal oral intake Medical Clearance: 09/13/21 06:49 was observed eating and drinking daily 09/15/21 16:52 Continue to work on placement, nursing staff was able to get her in the shower today she brushed her teeth applied hygiene products. Nursing staff has noticed that given simple directions she will follow commands will eat her food does toilet training independently. She now has been on IM Zyprexa for the last 4days suspicious this may be starting to influence some of her behavior. Did have a long discussion with her primary care mental health provider who still feels that inpatient psychiatric treatment would be best for her were then with long-term care. We will continue to try and find placement for her. Sepsis Event Note (ED) - Evaluation Sepsis Screening Result: No Definite Risk <Rusty Agarwal - Last Filed: 09/15/21 19:51> COURSE, BEHAVIORAL HEALTH COMP - Course Vital Signs: Last Vital Signs Temp 36.6 C 09/14/21 19:47 Pulse 96 09/14/21 19:47 Resp 16 09/14/21 19:47 BP 128/81 09/14/21 19:47 Pulse Ox 98 09/14/21 19:47 Orders, Labs, Meds: Medication Orders Olanzapine (Olanzapine 10 Mg Vial) 5 mg IM Q24H [facility] Last Admin: 09/14/21 19:43 Dose: 5 mg Documented by: Admin: 09/13/21 21:14 Dose: 5 mg Documented by: OTTO Sodium Chloride (Sodium Chloride 0.9% 10 Ml Syringe) 10 ml FLUSH ASDIRECTED PRN PRN Reason: Keep Vein Open Last Admin: 09/11/21 14:13 Dose: 10 ml Documented by: Admin: 09/09/21 20:09 Dose: 10 ml Documented by: GILMER Laboratory Tests 09/09/21 09/09/21 09/09/21 Range/Units 17:49 17:49 17:49 WBC 4.7 (4.5-11.0) K/uL RBC 5.16 (3.30-5.50) M/uL Hgb 14.9 (12.0-15.0) g/dL Hct 43.3 (36.0-48.0) % MCV 84 (80-98) fL MCH 29 (27-31) pg MCHC 34 (32-36) % Plt Count 145 L (150-400) K/uL Neut % (Auto) 56.0 (36-66) % Lymph % (Auto) 35.2 (24-44) % [place] % (Auto) 7.6 H (2-6) % Eos % (Auto) 0.8 L (2-4) % Baso % (Auto) 0.4 (0-1) % Sodium 140 (140-148) mmol/L Potassium 3.9 (3.6-5.2) mmol/L Chloride 101 (100-108) mmol/L Carbon Dioxide 24 (21-32) mmol/L Anion Gap 15.4 H (5.0-14.0) mmol/L BUN 12 (7-18) mg/dL Creatinine 0.9 (0.6-1.0) mg/dL Est Cr Clr Drug Dosing 71.48 mL/min Estimated GFR (MDRD) > 60 (>60) Glucose 71 L (74-106) mg/dL Calcium 9.2 (8.5-10.1) mg/dL Total Bilirubin 0.9 (0.2-1.0) mg/dL AST 7 L (15-37) U/L ALT 12 (12-78) U/L Alkaline Phosphatase 78 (46-116) U/L Total Protein 7.0 (6.4-8.2) g/dL Albumin 4.3 (3.4-5.0) g/dL Globulin 2.7 (2.3-3.5) g/dL Albumin/Globulin Ratio 1.6 (1.2-2.2) TSH, Ultra Sensitive (0.358-3.740) uIU/mL Urine Color (YELLOW) Urine Appearance (CLEAR) Urine pH (5.0-8.0) Ur Specific [place] (1.008-1.030) Urine Protein (NEGATIVE) mg/dL Urine Glucose (UA) (NEGATIVE) mg/dL Urine Ketones (NEGATIVE) mg/dL Urine Occult Blood (NEGATIVE) Urine Nitrite (NEGATIVE) Urine Bilirubin (NEGATIVE) Urine Urobilinogen (0.2-1.0) EU/dL Ur Leukocyte Esterase (NEGATIVE) Urine RBC (0-5) Urine WBC (0-5) Ur Epithelial Cells Amorphous Sediment Urine Bacteria Urine Mucus Urine HCG, Qual Urine Opiates Screen (NEGATIVE) Ur Oxycodone Screen (NEGATIVE) Urine Methadone Screen (NEGATIVE) Ur Propoxyphene Screen (NEGATIVE) Ur Barbiturates Screen (NEGATIVE) Ur Tricyclics Screen (NEGATIVE) Ur Phencyclidine Scrn (NEGATIVE) Ur Amphetamine Screen (NEGATIVE) U Methamphetamines Scrn (NEGATIVE) Urine MDMA Screen (NEGATIVE) U Benzodiazepines Scrn (NEGATIVE) U Cocaine Metab Screen (NEGATIVE) U Marijuana (THC) Screen (NEGATIVE) Ethyl Alcohol < 3 mg/dL SARS CoV-2 RNA Rapid RENATA 09/09/21 09/09/21 09/09/21 Range/Units 17:49 18:12 18:12 WBC (4.5-11.0) K/uL RBC (3.30-5.50) M/uL Hgb (12.0-15.0) g/dL Hct (36.0-48.0) % MCV (80-98) fL MCH (27-31) pg MCHC (32-36) % Plt Count (150-400) K/uL Neut % (Auto) (36-66) % Lymph % (Auto) (24-44) % [place] % (Auto) (2-6) % Eos % (Auto) (2-4) % Baso % (Auto) (0-1) % Sodium (140-148) mmol/L Potassium (3.6-5.2) mmol/L Chloride (100-108) mmol/L Carbon Dioxide (21-32) mmol/L Anion Gap (5.0-14.0) mmol/L BUN (7-18) mg/dL Creatinine (0.6-1.0) mg/dL Est Cr Clr Drug Dosing mL/min Estimated GFR (MDRD) (>60) Glucose (74-106) mg/dL Calcium (8.5-10.1) mg/dL Total Bilirubin (0.2-1.0) mg/dL AST (15-37) U/L ALT (12-78) U/L Alkaline Phosphatase (46-116) U/L Total Protein (6.4-8.2) g/dL Albumin (3.4-5.0) g/dL Globulin (2.3-3.5) g/dL Albumin/Globulin Ratio (1.2-2.2) TSH, Ultra Sensitive 1.358 (0.358-3.740) uIU/mL Urine Color Yellow (YELLOW) Urine Appearance Cloudy A (CLEAR) Urine pH 6.0 (5.0-8.0) Ur Specific [place] >= 1.030 (1.008-1.030) Urine Protein 30 H (NEGATIVE) mg/dL Urine Glucose (UA) Negative (NEGATIVE) mg/dL Urine Ketones 80 H (NEGATIVE) mg/dL Urine Occult Blood Small H (NEGATIVE) Urine Nitrite Negative (NEGATIVE) Urine Bilirubin Large H (NEGATIVE) Urine Urobilinogen 1.0 (0.2-1.0) EU/dL Ur Leukocyte Esterase Negative (NEGATIVE) Urine RBC 0-5 (0-5) Urine WBC 0-5 (0-5) Ur Epithelial Cells Many Amorphous Sediment Not seen Urine Bacteria Moderate Urine Mucus Many Urine HCG, Qual Negative Urine Opiates Screen (NEGATIVE) Ur Oxycodone Screen (NEGATIVE) Urine Methadone Screen (NEGATIVE) Ur Propoxyphene Screen (NEGATIVE) Ur Barbiturates Screen (NEGATIVE) Ur Tricyclics Screen (NEGATIVE) Ur Phencyclidine Scrn (NEGATIVE) Ur Amphetamine Screen (NEGATIVE) U Methamphetamines Scrn (NEGATIVE) Urine MDMA Screen (NEGATIVE) U Benzodiazepines Scrn (NEGATIVE) U Cocaine Metab Screen (NEGATIVE) U Marijuana (THC) Screen (NEGATIVE) Ethyl Alcohol mg/dL SARS CoV-2 RNA Rapid RENATA 09/09/21 09/10/21 Range/Units 18:12 07:13 WBC (4.5-11.0) K/uL RBC (3.30-5.50) M/uL Hgb (12.0-15.0) g/dL Hct (36.0-48.0) % MCV (80-98) fL MCH (27-31) pg MCHC (32-36) % Plt Count (150-400) K/uL Neut % (Auto) (36-66) % Lymph % (Auto) (24-44) % [place] % (Auto) (2-6) % Eos % (Auto) (2-4) % Baso % (Auto) (0-1) % Sodium (140-148) mmol/L Potassium (3.6-5.2) mmol/L Chloride (100-108) mmol/L Carbon Dioxide (21-32) mmol/L Anion Gap (5.0-14.0) mmol/L BUN (7-18) mg/dL Creatinine (0.6-1.0) mg/dL Est Cr Clr Drug Dosing mL/min Estimated GFR (MDRD) (>60) Glucose (74-106) mg/dL Calcium (8.5-10.1) mg/dL Total Bilirubin (0.2-1.0) mg/dL AST (15-37) U/L ALT (12-78) U/L Alkaline Phosphatase (46-116) U/L Total Protein (6.4-8.2) g/dL Albumin (3.4-5.0) g/dL Globulin (2.3-3.5) g/dL Albumin/Globulin Ratio (1.2-2.2) TSH, Ultra Sensitive (0.358-3.740) uIU/mL Urine Color (YELLOW) Urine Appearance (CLEAR) Urine pH (5.0-8.0) Ur Specific [place] (1.008-1.030) Urine Protein (NEGATIVE) mg/dL Urine Glucose (UA) (NEGATIVE) mg/dL Urine Ketones (NEGATIVE) mg/dL Urine Occult Blood (NEGATIVE) Urine Nitrite (NEGATIVE) Urine Bilirubin (NEGATIVE) Urine Urobilinogen (0.2-1.0) EU/dL Ur Leukocyte Esterase (NEGATIVE) Urine RBC (0-5) Urine WBC (0-5) Ur Epithelial Cells Amorphous Sediment Urine Bacteria Urine Mucus Urine HCG, Qual Urine Opiates Screen Negative (NEGATIVE) Ur Oxycodone Screen Negative (NEGATIVE) Urine Methadone Screen Negative (NEGATIVE) Ur Propoxyphene Screen Negative (NEGATIVE) Ur Barbiturates Screen Negative (NEGATIVE) Ur Tricyclics Screen Negative (NEGATIVE) Ur Phencyclidine Scrn Negative (NEGATIVE) Ur Amphetamine Screen Negative (NEGATIVE) U Methamphetamines Scrn Negative (NEGATIVE) Urine MDMA Screen Negative (NEGATIVE) U Benzodiazepines Scrn Negative (NEGATIVE) U Cocaine Metab Screen Negative (NEGATIVE) U Marijuana (THC) Screen Negative (NEGATIVE) Ethyl Alcohol mg/dL SARS CoV-2 RNA Rapid RENATA Negative Medications Generic Name Dose Route Start Last Admin Trade Name Freq PRN Reason Stop Dose Admin Olanzapine 5 mg 09/13/21 20:00 09/14/21 19:43 Olanzapine 10 Mg Vial IM 5 mg Q24H LOUISA Administration Sodium Chloride 10 ml 09/09/21 17:36 09/11/21 14:13 Sodium Chloride 0.9% 10 Ml Syringe FLUSH 10 ml ASDIRECTED PRN Administration Keep Vein Open Discontinued Medications Generic Name Dose Route Start Last Admin Trade Name Freq PRN Reason Stop Dose Admin Lactated Ringer's 1,000 mls @ 999 mls/hr 09/09/21 17:45 09/09/21 20:08 Ringers, Lactated IV 999 mls/hr .BOLUS LOUISA Administration Multivitamins/Minerals 10 ml/ 1,016.2 mls @ 500 mls/hr 09/11/21 13:28 09/11/21 14:13 Thiamine HCl 200 mg/ Folic IV 09/11/21 15:29 500 mls/hr Acid 1 mg/ Magnesium Sulfate 2 ONETIME ONE Administration gm/ Dextrose/Lactated Ringer' s Olanzapine 5 mg 09/11/21 19:48 09/11/21 20:03 Olanzapine 10 Mg Vial IM 09/11/21 19:49 5 mg ONETIME ONE Administration Olanzapine 5 mg 09/12/21 20:00 Olanzapine 10 Mg Vial IM 09/12/21 20:01 ONETIME ONE Olanzapine 5 mg 09/12/21 20:00 09/12/21 20:52 Olanzapine 10 Mg Vial IM 5 mg DAILY LOUISA Administration Olanzapine 5 mg 09/15/21 19:20 09/15/21 19:42 Olanzapine 5 Mg Tab PO 09/15/21 19:21 5 mg ONETIME ONE Administration Re-Assessment/Re-Exam: 09/10/21 18:00 [Dr. Agarwal] I am assuming care of the patient from Dr. Weller. At this time we are looking for inpatient placement to stabilize the patient with medication. She is not currently on a hold, but is holdable due to her mental health. 09/10/21 23:40 Randy Bermudez reviewed the notes from Dr. Shahid again refuses the patient stating that the patient has to be able to eat and drink before they will consider her for admission. We will continue to look for an appropriate inpatient bed. The patient continues to not want to eat or drink. 09/11/21 07:00 Care of the patient transferred to Dr. Weller. 09/11/21 18:00 [Dr. Agarwal] I assumed care of the patient from Dr. Weller. 09/11/21 19:25 the patient has now been here for 51 hours and is not on any medications to attempt to control her disorganized schizophrenia. I reached out to Dr. Reza, psychiatrist with [facility] for a consult on what we can do to start to stabilize this patient. She normally is on clozapine 25 mg at bed but has not taken that for nearly a month. She has not taking anything by mouth including water or food so an IV was placed and she did receive IV hydration with a banana bag today. Dr. Reza recommends that we start Zyprexa 5 mg IM daily. I did order the dose for today but unfortunately it will not allow me to order this on a scheduled basis. I will pass this information on to Dr. Mendoza will likely take over the patient at 0700 hours on 09/12/2021. The patient has already undergone a failure to thrive work-up including PT/OT evaluation and will get a speech evaluation on Tuesday. We will continue to look for placement in the meantime. We did attempt to give the patient a shower today and initially she was amenable to it, however, she declined once she was up in the patient room to get the shower. 09/14/2021 18:00 [Dr. Agarwal] I am again assuming care of the patient from Dr. Mendoza. To date, no facility is willing to take the patient due to her complexity. She is now eating intermittently. She is also receiving Zyprexa 5 mg IM daily. 09/15/2021 0700 Care of the patient will be turned over to Dr. Weller while awaiting disposition. 09/15/2021 18:00 [Dr. Agarwal] I am resuming care of Sujatha from Dr. Weller. 09/15/2021 18:45 Sujatha came to the nurses desk and asked to use the phone to call her mom. They apparently had a discussion and mom is decided that she is going to come to Sujatha home at this point. As there is a very low likelihood of her being placed anywhere and Sujatha is not suicidal or threat to herself, I do believe that she is suitable of going home with mom. We will continue on her olanzapine 5 mg at bedtime. I have provided a prescription for this and we will give her her nighttime dose before she leaves. Departure - Departure Time of Disposition: 19:51
[2021-09-09] MEDS ORDERED: Lactated Ringers 1,000 ML IV SCH (17:45)
[2021-09-09] MEDS: Sodium Chloride 0.9% 10 ML Syringe FLUSH PRN (20:09)
--- NOTE | 2021-09-10 16:11 | CONS ---
DATE OF SERVICE: 09/10/2021 REFERRING PHYSICIAN: CONSULTING PHYSICIAN: Ortega Shahid MD Site where the services are provided is [facility] in [place], [place]. Site where the services are provided from our offices in [place], [place]. Length of service for this 60-minute emergency room telemedicine event is 60 minutes. IDENTIFICATION: The patient is a 26-year-old female who was brought to the emergency room at [facility] in [place], [place], by her care provider. She is seen for psychiatric consultation per the request of staff attending, Officer, and his treatment team. CHIEF COMPLAINT: "I was dehydrated." HISTORY OF PRESENT ILLNESS: The patient is a 26-year-old female who is brought in by a guardian after the patient was having issues with increased , decreased appetite, not caring for herself as well as possible depression. The patient has history of schizophrenia, and she is on a regimen of Clozaril 125 mg in the evening. It is unclear if patient has been taking this medication regularly. She states that she has just been feeling sick "for a while now," and she states she last took her medications "2 days ago." She is stating that she is sleeping good and denies that she is suicidal or homicidal. She denies any hallucinations. She denies any illicit substance use or excessive alcoholic use complicating her clinical picture. She does not feel that she is able to care for herself and she feels "I need to be in the hospital." MEDICATIONS: At the time of presentation: 1. Clozapine 125 mg q.h.s. 2. Protonix 40 mg daily. ALLERGIES: RISPERDAL, WHICH CAUSES DELUSIONS. PAST MEDICAL HISTORY: The patient denies. REVIEW OF SYSTEMS: The patient denied any difficulties or acute complications with her GI, , pulmonary, cardiac, endocrine, autoimmune, skin, musculoskeletal, or nervous systems. FAMILY PSYCHATRIC AND CD HISTORY: None reported. PAST PSYCHIATRIC AND CD HISTORY: The patient denies any previous psychiatric hospitalizations or chemical dependency treatment. She does have a history of schizophrenia. 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 , and she lives with her guardian who provides for her visits to her care providers. SOCIAL HISTORY: The patient is born and raised in [place], [place]. She is the fourth of 4 siblings and 3 brothers. She states her parents were when she was 2 years age. She was raised by her mom. Mom worked as a labor/excavator. The patient's higher level of education is a high school diploma. 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 Denies any abortions. She currently lives in [place], she states with her and then her guardian, but she is unclear about this living situation, and she states that her is a college student. She reports no service or any legal difficulties. MENTAL STATUS EXAMINATION: The patient is a 26-year-old soft spoken white female in no apparent distress. Speech is significant for increased latency of response and shortened duration of utterance. She is cognitively oriented x2 to person and place but not to date. There are no abnormal motor movements or tics. Her gait and station are not observed. This patient is seated during the course of the interview in an emergency room setting with staff present. Mood is "depressed." Affect is cooperative but overall confused appearing. There is no behavioral or stated evidence of acute suicidal or homicidal ideation. There is no acute delusional symptoms available or evident; however, thought processes appear very disorganized and there does appear to be quite a bit of thought blocking evident. There are no manic symptoms or loose associations evident. Judgement and insight do appear impaired secondary to patient's thought blocking and thought disorganization. Motivation for help appears fair. VITAL SIGNS: At the time of admission, 122/70, 94, 20, and 35.6 degrees Centigrade. IMPRESSION: [place] I: 1. Schizophrenia, F20. 2. Rule out schizoaffective disorder. 3. Depression, not otherwise specified, F32.9. 4. Rule out major depressive disorder. [place] II: None. [place] III: Reported history of dehydration but all laboratories are normal per staff report. [place] IV: Severe. [place] V: 55. PLAN: 1. Recommend that patient's medications on her prescribed psychiatric medication regimen. 2. Recommend that when patient is medically stabilized in the ER and cleared from a medical standpoint that she be transferred to inpatient psych for psychiatric stabilization as she does not appear to be thinking clearly at this point in time. We would recommend that upon transfer to inpatient psych unit that inpatient psych staff review patient's current psychiatric medication regimen and adjust accordingly if needed or make sure that patient is medication complaint, so she can be stabilized and discharged back to the community. 3. We will continue to follow up with patient on an as needed basis while she remains in emergency room unit. 4. We will follow up with patient sooner if there are any complications in the interim. 5. Crisis plan is in place. Ortega Shahid MD /[id number]
[2021-09-11] MEDS ORDERED: MVI, Adult with Vitamin K 10 ML, Thiamine 200 MG, Folic Acid 1 MG, Magnesium Sulfate 2 ... IV ONE ×5 (13:28)
[2021-09-11] MEDS: Sodium Chloride 0.9% 10 ML Syringe FLUSH PRN (14:13)
[2021-09-11] MEDS ORDERED: OLANZapine 10 MG Vial IM ONE (19:48)
[2021-09-12] MEDS ORDERED: OLANZapine 10 MG Vial IM SCH (20:00)
[2021-09-12] MEDS ORDERED: OLANZapine 10 MG Vial IM ONE (20:00)
[2021-09-13] MEDS: OLANZapine 10 MG Vial IM SCH (21:14)
[2021-09-14] MEDS: OLANZapine 10 MG Vial IM SCH (19:43)
[2021-09-14 19:47] VITALS: BP 128/81; PULSE 96
[2021-09-15] MEDS ORDERED: OLANZapine 5 MG Tab PO ONE (19:20)
[2021-09-15] MEDS: OLANZapine 10 MG Vial IM SCH (20:07)
== END 2021-09-15 20:00 | disposition home or self-care (01) ==
LOC: JP.ED 15:33
DX: F20.1 Disorganized schizophrenia (principal); E86.0 Dehydration; E66.9 Obesity, unspecified; Z68.23 Body mass index [BMI] 23.0-23.9, adult; Z87.891 Personal history of nicotine dependence; Z20.822 Contact with and (suspected) exposure to COVID-19
CPT/HCPCS: 36415; 80053; 80305; 80307; 81001; 81025; 84443; 85025; 96365; 96366; 96372; 99285; A9270; J3411; J3475; J3490; J7120; J7121; U0002

== ENCOUNTER 2021-10-02 22:22 | Emergency (ER) | payer MEDICARE, MEDICAID ==
--- NOTE | 2021-10-02 22:51 | EDM.PDOCBH ---
<Pb Solis - Last Filed: 10/03/21 00:38> ED HPI GENERAL MEDICAL PROBLEM - General Chief Complaint: Behavioral/Psych Stated Complaint: MEDICAL VIA [facility] Time Seen by Provider: 10/02/21 22:30 Source of Information: Reports: EMS, Family History Limitations: Reports: Altered Mental Status, Physical Impairment (Patient is acutely schizophrenic, uncooperative and only answers no to questions.) - History of Present Illness INITIAL COMMENTS - FREE TEXT/NARRATIVE: 26-year-old female chronic schizophrenic who is not taking her medications, not caring for herself, showering or eating well. Her mother is unable to get her to take her medications so called the ambulance [facility] to have her sent into the emergency room for stabilization. She is not manic, she does not seem delusional but she does seem somewhat catatonic and disjointed from reality. She is not oriented. She denies any pain, when I asked her why she is here she shakes her head no, if I asked her if she is having pain or shortness of breath or any symptoms she just shakes her head no but she does not seem to be registering really well what I am asking her. Her mother is just simply not able to care for her or get her to comply with taking medication. Her last ED visit with her psychiatric provider the patient refused to go to the computer and be interviewed so her provider stopped her medications because she was not taking them anyway, and felt she needed to be placed for stabilization and consider long-term IM deposition type medications but she needed to be stabili zed inpatient first. I am not sure what the delay in the last 2 weeks was but the patient has not had any medications, is not eating well and becoming more somnolent and withdrawn. Onset: Unknown/Unsure (She was in the emergency room 3 weeks ago with very similar symptoms, was here for 3 days and stabilized with some treatment and was sent home with her mother) Associated Symptoms: Reports: Confusion (Seems disjointed from reality). Denies: Nausea/Vomiting, Shortness of Breath, Other - Related Data Allergies Allergy/AdvReac Type Severity Reaction Status Date / Time risperidone [From Risperdal] AdvReac Delusions Verified 10/02/21 22:28 Home Meds: Home Meds OLANZapine [Olanzapine Odt] 5 mg PO DAILY #30 tab.rapdis 10/03/21 [Rx] Past Medical History HEENT History: Reports: None Cardiovascular History: Reports: Other (See Below) Other Cardiovascular History: high pulse rate-? r/t medications Respiratory History: Reports: Bronchitis, Recurrent Gastrointestinal History: Reports: Chronic Constipation, Chronic Diarrhea, Gastritis KITCHEN OPERATOR History: Reports: Other (See Below) Other KITCHEN OPERATOR History: heavy bleeding and clotting Psychiatric History: Reports: Addiction, Anxiety, Bipolar, Panic Attack, Psych Hospitalization(s), Schizophrenia Endocrine/Metabolic History: Reports: Obesity/BMI 30+ Hematologic History: Reports: Other (See Below) Other Hematologic History: large uterine clots frequently - Infectious Disease History Infectious Disease History: Reports: Chicken Pox - Past Surgical History Head Surgeries/Procedures: Reports: None HEENT Surgical History: Reports: Oral Surgery Other HEENT Surgeries/Procedures: tooth pulled Cardiovascular Surgical History: Reports: None Respiratory Surgical History: Reports: None GI Surgical History: Reports: None Endocrine Surgical History: Reports: None Dermatological Surgical History: Reports: None Social & Family History - Family History Family Medical History: No Pertinent Family History - Tobacco Use Tobacco Use Status *Q: Former Tobacco User Used Tobacco, but Quit: Yes Month/Year Tobacco Last Used: 2010 - Caffeine Use Caffeine Use: Reports: Soda Other Caffeine Use: Sprite X1 large Caffeine Use Comment: 2 bottles daily - Recreational Drug Use Recreational Drug Use: No ED ROS GENERAL - Review of Systems Review Of Systems: See Below Reason Not Obtained: Difficult to obtain as the patient is not cooperative, not answering questions consistently ED EXAM, BEHAVIORAL HEALTH - Physical Exam Exam: See Below Exam Limited By: Physical Impairment (Depressed disengaged schizophrenic state) General Appearance: Alert, No Apparent Distress Eye Exam: Bilateral Eye: Normal Inspection (Pupils are reactive, no disconjugate gaze) Head: Atraumatic Respiratory/Chest: Lungs Clear Cardiovascular: Regular Rate, Rhythm GI/Abdominal: Soft, Non-Tender Extremities: Other (No obvious injuries to the extremities) Neurological: Alert. No: Oriented x 3 COURSE, BEHAVIORAL HEALTH COMP - Course Re-Assessment/Re-Exam: CBC, BMP were obtained as well as a UA for urine , urine drug screen and UA. A Covid test was done for placement. Hopefully we can get this patient placed so she can be stabilized and more effective treatment can be established. CBC and CMP were obtained and are within normal limits. Covid was negative. Awaiting urine for testing. Departure - Departure Disposition: Home, Self-Care Clinical Impression: Bipolar 1 disorder, Noncompliance with medication regimen Schizophrenia Qualifiers: Schizophrenia type: disorganized schizophrenia Qualified Code(s): F20.1 - Disorganized schizophrenia - Discharge Information Instructions: Managing Schizophrenia, Supporting Someone With Schizophrenia Referrals: Nae Almonte PA-C [Primary Care Provider] - Forms: ED Department Discharge Care Plan Goals: Follow-up on Tuesday with [facility] to see what can be put into place to ensure that Sujatha continues to get supervised medical management and remains compliant on her medications. I did file a report with the state through the department of health requesting them to investigate if she is a vulnerable adult and requires a more structured, supervised environment than at home. In the meantime, I have printed another prescription for Zyprexa 5 mg daily. Please make sure she takes it every day without excuse. No exceptions. Sepsis Event Note (ED) - Evaluation Sepsis Screening Result: No Definite Risk <Rusty Agarwal C - Last Filed: 10/03/21 12:25> COURSE, BEHAVIORAL HEALTH COMP - Course Vital Signs: Last Vital Signs Temp 36.1 C 10/03/21 09:07 Pulse 70 10/03/21 09:07 Resp 16 10/03/21 09:07 BP 106/71 10/03/21 09:07 Pulse Ox 98 10/03/21 09:07 Orders, Labs, Meds: Active Orders 24 hr Category Date Time Status OLANZapine [ZyPREXA] Med 10/03/21 09:00 Active 5 mg PO DAILY Medication Orders Olanzapine (Olanzapine 5 Mg Tab) 5 mg PO DAILY [facility] Last Admin: 10/03/21 08:10 Dose: 5 mg Documented by: ANDREA Laboratory Tests 10/02/21 10/02/21 10/02/21 Range/Units 22:50 22:50 22:57 WBC 7.0 (4.5-11.0) K/uL RBC 4.65 (3.30-5.50) M/uL Hgb 13.5 (12.0-15.0) g/dL Hct 40.2 (36.0-48.0) % MCV 87 (80-98) fL MCH 29 (27-31) pg MCHC 34 (32-36) % Plt Count 131 L (150-400) K/uL Neut % (Auto) 45.6 (36-66) % Lymph % (Auto) 43.6 (24-44) % [place] % (Auto) 9.1 H (2-6) % Eos % (Auto) 1.4 L (2-4) % Baso % (Auto) 0.3 (0-1) % Sodium 142 (140-148) mmol/L Potassium 4.3 (3.6-5.2) mmol/L Chloride 105 (100-108) mmol/L Carbon Dioxide 25 (21-32) mmol/L Anion Gap 11.9 (5.0-14.0) mmol/L BUN 8 (7-18) mg/dL Creatinine 0.8 (0.6-1.0) mg/dL Est Cr Clr Drug Dosing 80.50 mL/min Estimated GFR (MDRD) > 60 (>60) Glucose 92 (74-106) mg/dL Calcium 8.6 (8.5-10.1) mg/dL Urine Color (YELLOW) Urine Appearance (CLEAR) Urine pH (5.0-8.0) Ur Specific [place] (1.008-1.030) Urine Protein (NEGATIVE) mg/dL Urine Glucose (UA) (NEGATIVE) mg/dL Urine Ketones (NEGATIVE) mg/dL Urine Occult Blood (NEGATIVE) Urine Nitrite (NEGATIVE) Urine Bilirubin (NEGATIVE) Urine Urobilinogen (0.2-1.0) EU/dL Ur Leukocyte Esterase (NEGATIVE) Urine RBC (0-5) Urine WBC (0-5) Ur Epithelial Cells Amorphous Sediment Urine Bacteria Urine Mucus Urine HCG, Qual Urine Opiates Screen (NEGATIVE) Ur Oxycodone Screen (NEGATIVE) Urine Methadone Screen (NEGATIVE) Ur Propoxyphene Screen (NEGATIVE) Ur Barbiturates Screen (NEGATIVE) Ur Tricyclics Screen (NEGATIVE) Ur Phencyclidine Scrn (NEGATIVE) Ur Amphetamine Screen (NEGATIVE) U Methamphetamines Scrn (NEGATIVE) Urine MDMA Screen (NEGATIVE) U Benzodiazepines Scrn (NEGATIVE) U Cocaine Metab Screen (NEGATIVE) U Marijuana (THC) Screen (NEGATIVE) SARS CoV-2 RNA Rapid RENATA Negative 10/03/21 10/03/21 10/03/21 Range/Units 06:57 06:57 06:57 WBC (4.5-11.0) K/uL RBC (3.30-5.50) M/uL Hgb (12.0-15.0) g/dL Hct (36.0-48.0) % MCV (80-98) fL MCH (27-31) pg MCHC (32-36) % Plt Count (150-400) K/uL Neut % (Auto) (36-66) % Lymph % (Auto) (24-44) % [place] % (Auto) (2-6) % Eos % (Auto) (2-4) % Baso % (Auto) (0-1) % Sodium (140-148) mmol/L Potassium (3.6-5.2) mmol/L Chloride (100-108) mmol/L Carbon Dioxide (21-32) mmol/L Anion Gap (5.0-14.0) mmol/L BUN (7-18) mg/dL Creatinine (0.6-1.0) mg/dL Est Cr Clr Drug Dosing mL/min Estimated GFR (MDRD) (>60) Glucose (74-106) mg/dL Calcium (8.5-10.1) mg/dL Urine Color Yellow (YELLOW) Urine Appearance Clear (CLEAR) Urine pH 7.0 (5.0-8.0) Ur Specific [place] 1.015 (1.008-1.030) Urine Protein Negative (NEGATIVE) mg/dL Urine Glucose (UA) Negative (NEGATIVE) mg/dL Urine Ketones Negative (NEGATIVE) mg/dL Urine Occult Blood Negative (NEGATIVE) Urine Nitrite Negative (NEGATIVE) Urine Bilirubin Negative (NEGATIVE) Urine Urobilinogen 0.2 (0.2-1.0) EU/dL Ur Leukocyte Esterase Negative (NEGATIVE) Urine RBC Not seen (0-5) Urine WBC Not seen (0-5) Ur Epithelial Cells Few Amorphous Sediment Not seen Urine Bacteria Rare Urine Mucus Not seen Urine HCG, Qual Negative Urine Opiates Screen Negative (NEGATIVE) Ur Oxycodone Screen Negative (NEGATIVE) Urine Methadone Screen Negative (NEGATIVE) Ur Propoxyphene Screen Negative (NEGATIVE) Ur Barbiturates Screen Negative (NEGATIVE) Ur Tricyclics Screen Negative (NEGATIVE) Ur Phencyclidine Scrn Negative (NEGATIVE) Ur Amphetamine Screen Negative (NEGATIVE) U Methamphetamines Scrn Negative (NEGATIVE) Urine MDMA Screen Negative (NEGATIVE) U Benzodiazepines Scrn Negative (NEGATIVE) U Cocaine Metab Screen Negative (NEGATIVE) U Marijuana (THC) Screen Negative (NEGATIVE) SARS CoV-2 RNA Rapid RENATA Medications Generic Name Dose Route Start Last Admin Trade Name Jocelyne PRN Reason Stop Dose Admin Olanzapine 5 mg 10/03/21 09:00 10/03/21 08:10 Olanzapine 5 Mg Tab PO 5 mg DAILY LOUISA Administration Re-Assessment/Re-Exam: 10/03/21 07:00 [Dr. Agarwal] I am doing care of the patient at 0700 hrs. At this time we are awaiting the urinalysis and urine drug screen. The patient has not been compliant with her medication regime for the last 2 weeks so we will reinitiate her Zyprexa 5 mg daily. If she is not able to take it orally we will give it to her IM but not taking it is not an option for her. 10/03/21 07:10 urinalysis and urine drug screen were reviewed and are both negative. Patient is medically cleared for inpatient admission at this time. Medical Clearance: 10/03/21 07:19 Sujatha is in need of inpatient admission and stabilization for uncontrolled schizophrenia and medication noncompliance. After evaluation and laboratories were obtained, patient is medically cleared for admission to inpatient psychiatry. 10/03/21 12:21 trying to contact numerous facilities on our checklist there were no beds available that would accept the patient. [facility] did not feel that she was acute enough to require inpatient hospitalization and she was not suicidal and [facility] would not accept her because a did not feel she was sick enough to require hospitalization. This was discussed with the patient's mother Andree who is going to come take her home. I did file a report for vulnerable adult with the state to try to get child protective services social worker to intervene and get her placed into a supervised facility where they can manage her medications and mental health. This was discussed with the patient's mother as well. Departure - Departure Time of Disposition: 12:25 Sepsis Event Note (ED) - Focused Exam Vital Signs: Vital Signs Temp Pulse Resp BP Pulse Ox 10/03/21 09:07 36.1 C 70 16 106/71 98 - Problem List & Annotations (1) Noncompliance with medication regimen SNOMED Code(s): 766123307 Code(s): Z91.14 - PATIENT'S OTHER NONCOMPLIANCE WITH MEDICATION REGIMEN Status: Acute Priority: High Current Visit: Yes (2) Schizophrenia SNOMED Code(s): 43665466 Code(s): F20.9 - SCHIZOPHRENIA, UNSPECIFIED Status: Chronic Priority: High Current Visit: Yes Qualifiers: Schizophrenia type: disorganized schizophrenia Qualified Code(s): F20.1 - Disorganized schizophrenia (3) Bipolar 1 disorder SNOMED Code(s): 285206106 Code(s): F31.9 - BIPOLAR DISORDER, UNSPECIFIED Status: Chronic Priority: High Current Visit: Yes - Problem List Review Problem List Initiated/Reviewed/Updated: Yes - My Orders Last 24 Hours: My Active Orders 10/03/21 09:00 OLANZapine [ZyPREXA] 5 mg PO DAILY - Assessment/Plan Last 24 Hours: My Active Orders 10/03/21 09:00 OLANZapine [ZyPREXA] 5 mg PO DAILY
[2021-10-03] MEDS ORDERED: OLANZapine 5 MG Tab PO SCH (09:00)
[2021-10-03 09:08] VITALS: BP 106/71; PULSE 70
== END 2021-10-03 13:11 | disposition home or self-care (01) ==
LOC: EEVIPCON 22:22 → JP.ED 22:22
DX: F20.1 Disorganized schizophrenia (principal); F31.9 Bipolar disorder, unspecified; E66.9 Obesity, unspecified; Z68.23 Body mass index [BMI] 23.0-23.9, adult; Z88.8 Allergy status to other drugs, medicaments and biological substances; Z87.891 Personal history of nicotine dependence; Z20.822 Contact with and (suspected) exposure to COVID-19
CPT/HCPCS: 36415; 80048; 80305; 81001; 81025; 85025; 99285; A9270; U0002

== ENCOUNTER → 2021-10-10 | Emergency (ER) | payer MEDICARE, MEDICAID ==
[2021-10-10 13:55] VITALS: BP 149/90; PULSE 72
--- NOTE | 2021-10-10 16:28 | EDM.PDOC ---
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 She is not forthcoming with information majority of this is obtained from her mom - Related Data Allergies Allergy/AdvReac Type Severity Reaction Status Date / Time risperidone [From Risperdal] AdvReac Delusions Verified 10/10/21 13:55 Home Meds: Home Meds NK [No Known Home Meds] 10/10/21 [History] Past Medical History HEENT History: Reports: None Cardiovascular History: Reports: Other (See Below) Other Cardiovascular History: high pulse rate-? r/t medications Respiratory History: Reports: Bronchitis, Recurrent Gastrointestinal History: Reports: Chronic Constipation, Chronic Diarrhea, Gastritis JAVA LEAD ARCHITECT History: Reports: Other (See Below) Other JAVA LEAD ARCHITECT History: heavy bleeding and clotting Psychiatric History: Reports: Addiction, Anxiety, Bipolar, Panic Attack, Psych Hospitalization(s), Schizophrenia Endocrine/Metabolic History: Reports: Obesity/BMI 30+ Hematologic History: Reports: Other (See Below) Other Hematologic History: large uterine clots frequently - Infectious Disease History Infectious Disease History: Reports: Chicken Pox - Past Surgical History Head Surgeries/Procedures: Reports: None HEENT Surgical History: Reports: Oral Surgery Other HEENT Surgeries/Procedures: tooth pulled Cardiovascular Surgical History: Reports: None Respiratory Surgical History: Reports: None GI Surgical History: Reports: None Endocrine Surgical History: Reports: None Dermatological Surgical History: Reports: None Social & Family History - Family History Family Medical History: No Pertinent Family History - Tobacco Use Tobacco Use Status *Q: Never Tobacco User - Caffeine Use Caffeine Use: Reports: Soda Other Caffeine Use: Sprite X1 large Caffeine Use Comment: 2 bottles daily - Recreational Drug Use Recreational Drug Use: No ED ROS GENERAL - Review of Systems Review Of Systems: Unable To Obtain Reason Not Obtained: Due to schizophrenia difficult to obtain review of systems ED EXAM, RENAL/ - Physical Exam Exam: Not Obtained Reason Not Obtained: Patient refused Course - Vital Signs Last Recorded V/S: Last Vital Signs Temp 97.8 F 10/10/21 13:53 Pulse 72 10/10/21 13:53 Resp 16 10/10/21 13:53 BP 149/90 H 10/10/21 13:53 Pulse Ox 99 10/10/21 13:53 - Re-Assessments/Exams Free Text/Narrative Re-Assessment/Exam: 10/10/21 16:27 Patient did not want a male doctor I offered her female doctor at shift change 6:00 they left abruptly and eloped therefore undetermined no exam was done Departure - Departure Time of Disposition: 16:27 Disposition: Eloped 07 Condition: Undetermined Clinical Impression: Foreign body in vagina Qualifiers: Encounter type: initial encounter Qualified Code(s): T19.2XXA - Foreign body in vulva and vagina, initial encounter - Discharge Information Referrals: PCP,None [Primary Care Provider] - Sepsis Event Note (ED) - Evaluation Sepsis Screening Result: No Definite Risk - Focused Exam Vital Signs: Vital Signs Temp Pulse Resp BP Pulse Ox 10/10/21 13:53 97.8 F 72 16 149/90 H 99
== END | disposition left against medical advice (07) ==
LOC: JP.ED 13:36
DX: T19.2XXA Foreign body in vulva and vagina, initial encounter (principal); E66.9 Obesity, unspecified; Z68.25 Body mass index [BMI] 25.0-25.9, adult; Z88.8 Allergy status to other drugs, medicaments and biological substances
CPT/HCPCS: 99283

== ENCOUNTER 2021-10-24 01:57 | Emergency (ER) | payer MEDICARE, MEDICAID ==
[2021-10-24] MEDS ORDERED: OLANZapine 10 MG Vial IM ONE (02:59)
--- NOTE | 2021-10-24 03:07 | EDM.PDOCBH ---
<Mohinder Mendoza G - Last Filed: 10/24/21 06:23> ED HPI GENERAL MEDICAL PROBLEM - General Chief Complaint: Behavioral/Psych Stated Complaint: EVAL Time Seen by Provider: 10/24/21 03:00 Source of Information: Reports: Patient, Family, Old Records, RN History Limitations: Reports: No Limitations - History of Present Illness INITIAL COMMENTS - FREE TEXT/NARRATIVE: 26 yo female with a pHx of schizophrenia is brought in by her mother for mental illness exacerbated by Sujatha's recent refusal to take her medication. Sujatha has been living with her mother, but the mother reports tonight that she cannot handle her anymore and wants her placed. Was sent to [facility] in Aug of this year for similar issues. Onset: Gradual Duration: Day(s):, Getting Worse Location: Reports: Generalized Quality: Reports: Other (pain not reported) Severity: Severe (mental illness) Improves with: Reports: None Worsens with: Reports: Other (time, medication non-compliance) Context: Reports: Other (See HPI) Associated Symptoms: Reports: Other (behavioral) Treatments MANAGER MOUNTAIN: Reports: Other (see below) (none) - Related Data Allergies Allergy/AdvReac Type Severity Reaction Status Date / Time risperidone [From Risperdal] AdvReac Delusions Verified 10/24/21 02:26 Home Meds: Home Meds OLANZapine [Olanzapine] 5 mg PO DAILY 10/24/21 [History] Past Medical History HEENT History: Reports: None Cardiovascular History: Reports: Other (See Below) Other Cardiovascular History: high pulse rate-? r/t medications Respiratory History: Reports: Bronchitis, Recurrent Gastrointestinal History: Reports: Chronic Constipation, Chronic Diarrhea, Gastritis AGENCY OPERATOR History: Reports: Other (See Below) Other AGENCY OPERATOR History: heavy bleeding and clotting Psychiatric History: Reports: Addiction, Anxiety, Bipolar, Panic Attack, Psych Hospitalization(s), Schizophrenia Endocrine/Metabolic History: Reports: Obesity/BMI 30+ Hematologic History: Reports: Other (See Below) Other Hematologic History: large uterine clots frequently - Infectious Disease History Infectious Disease History: Reports: Chicken Pox - Past Surgical History Head Surgeries/Procedures: Reports: None HEENT Surgical History: Reports: Oral Surgery Other HEENT Surgeries/Procedures: tooth pulled Cardiovascular Surgical History: Reports: None Respiratory Surgical History: Reports: None GI Surgical History: Reports: None Endocrine Surgical History: Reports: None Social & Family History - Family History Family Medical History: No Pertinent Family History - Tobacco Use Tobacco Use Status *Q: Current Every Day Tobacco User Years of Tobacco use: 11 Packs/Tins Daily: 0.5 - Caffeine Use Caffeine Use: Reports: Soda Other Caffeine Use: Sprite X1 large Caffeine Use Comment: 2 bottles daily - Recreational Drug Use Recreational Drug Use: No ED ROS GENERAL - Review of Systems Review Of Systems: Unable To Obtain Reason Not Obtained: mental illness ED EXAM, BEHAVIORAL HEALTH - Physical Exam Exam: See Below Exam Limited By: No Limitations General Appearance: Alert, WD/WN, No Apparent Distress Eye Exam: Bilateral Eye: Normal Inspection Ears: Normal External Exam, Normal Canal, Hearing Grossly Normal Nose: Normal Inspection, No Blood Throat/Mouth: Normal Inspection, Normal Lips, Normal Voice, No Airway Compromise Head: Atraumatic, Normocephalic Neck: Normal Inspection Respiratory/Chest: No Respiratory Distress, Lungs Clear, Normal Breath Sounds, No Accessory Muscle Use Cardiovascular: Regular Rate, Rhythm, No Edema GI/Abdominal: Non-Tender Back Exam: Normal Inspection Extremities: Normal Inspection, Non-Tender Neurological: Alert, CN II-XII Intact, No Motor/Sensory Deficits Psychiatric: Alert, Flat Affect Skin Exam: Warm, Dry, Intact, Normal color, No rash Departure - Departure Disposition: DC/Tfer to Psych Hosp/Unit [facility] Condition: Fair Clinical Impression: Medical non-compliance Schizophrenia Qualifiers: Schizophrenia type: disorganized schizophrenia Qualified Code(s): F20.1 - Disorganized schizophrenia - Discharge Information Referrals: Nae Almonte PA-C [Primary Care Provider] - Forms: ED Department Discharge <OfficerEfren - Last Filed: 10/25/21 19:28> COURSE, BEHAVIORAL HEALTH COMP - Course Vital Signs: Last Vital Signs Temp 98.1 F 10/24/21 16:09 Pulse 88 10/24/21 16:09 Resp 16 10/24/21 16:09 BP 122/81 10/24/21 16:09 Pulse Ox 97 10/24/21 16:09 Orders, Labs, Meds: Laboratory Tests 10/24/21 10/24/21 10/24/21 Range/Units 04:41 04:41 04:41 WBC 5.4 (4.5-11.0) K/uL RBC 4.70 (3.30-5.50) M/uL Hgb 13.5 (12.0-15.0) g/dL Hct 41.4 (36.0-48.0) % MCV 88 (80-98) fL MCH 29 (27-31) pg MCHC 33 (32-36) % Plt Count 135 L (150-400) K/uL Sodium 138 L (140-148) mmol/L Potassium 3.8 (3.6-5.2) mmol/L Chloride 103 (100-108) mmol/L Carbon Dioxide 26 (21-32) mmol/L Anion Gap 12.8 (5.0-14.0) mmol/L BUN 9 (7-18) mg/dL Creatinine 0.7 (0.6-1.0) mg/dL Est Cr Clr Drug Dosing 87.48 mL/min Estimated GFR (MDRD) > 60 (>60) Glucose 87 (74-106) mg/dL Calcium 8.8 (8.5-10.1) mg/dL TSH, Ultra Sensitive 1.165 (0.358-3.740) uIU/mL Urine Color (YELLOW) Urine Appearance (CLEAR) Urine pH (5.0-8.0) Ur Specific Agency (1.008-1.030) Urine Protein (NEGATIVE) mg/dL Urine Glucose (UA) (NEGATIVE) mg/dL Urine Ketones (NEGATIVE) mg/dL Urine Occult Blood (NEGATIVE) Urine Nitrite (NEGATIVE) Urine Bilirubin (NEGATIVE) Urine Urobilinogen (0.2-1.0) EU/dL Ur Leukocyte Esterase (NEGATIVE) Urine RBC (0-5) Urine WBC (0-5) Ur Epithelial Cells Amorphous Sediment Urine Bacteria Urine Mucus Urine HCG, Qual Salicylates (2.0-20.0) mg/dL Urine Opiates Screen (NEGATIVE) Ur Oxycodone Screen (NEGATIVE) Urine Methadone Screen (NEGATIVE) Ur Propoxyphene Screen (NEGATIVE) Acetaminophen 0.0 L (10.0-30.0) ug/mL Ur Barbiturates Screen (NEGATIVE) Ur Tricyclics Screen (NEGATIVE) Ur Phencyclidine Scrn (NEGATIVE) Ur Amphetamine Screen (NEGATIVE) U Methamphetamines Scrn (NEGATIVE) Urine MDMA Screen (NEGATIVE) U Benzodiazepines Scrn (NEGATIVE) U Cocaine Metab Screen (NEGATIVE) U Marijuana (THC) Screen (NEGATIVE) Ethyl Alcohol mg/dL SARS CoV-2 RNA Rapid RENATA 10/24/21 10/24/21 10/24/21 Range/Units 04:41 04:41 04:49 WBC (4.5-11.0) K/uL RBC (3.30-5.50) M/uL Hgb (12.0-15.0) g/dL Hct (36.0-48.0) % MCV (80-98) fL MCH (27-31) pg MCHC (32-36) % Plt Count (150-400) K/uL Sodium (140-148) mmol/L Potassium (3.6-5.2) mmol/L Chloride (100-108) mmol/L Carbon Dioxide (21-32) mmol/L Anion Gap (5.0-14.0) mmol/L BUN (7-18) mg/dL Creatinine (0.6-1.0) mg/dL Est Cr Clr Drug Dosing mL/min Estimated GFR (MDRD) (>60) Glucose (74-106) mg/dL Calcium (8.5-10.1) mg/dL TSH, Ultra Sensitive (0.358-3.740) uIU/mL Urine Color Yellow (YELLOW) Urine Appearance Clear (CLEAR) Urine pH 7.0 (5.0-8.0) Ur Specific Agency 1.015 (1.008-1.030) Urine Protein Negative (NEGATIVE) mg/dL Urine Glucose (UA) Negative (NEGATIVE) mg/dL Urine Ketones Negative (NEGATIVE) mg/dL Urine Occult Blood Negative (NEGATIVE) Urine Nitrite Negative (NEGATIVE) Urine Bilirubin Negative (NEGATIVE) Urine Urobilinogen 0.2 (0.2-1.0) EU/dL Ur Leukocyte Esterase Negative (NEGATIVE) Urine RBC 0-5 (0-5) Urine WBC 0-5 (0-5) Ur Epithelial Cells Rare Amorphous Sediment Not seen Urine Bacteria Few Urine Mucus Not seen Urine HCG, Qual Salicylates 0.6 L (2.0-20.0) mg/dL Urine Opiates Screen (NEGATIVE) Ur Oxycodone Screen (NEGATIVE) Urine Methadone Screen (NEGATIVE) Ur Propoxyphene Screen (NEGATIVE) Acetaminophen (10.0-30.0) ug/mL Ur Barbiturates Screen (NEGATIVE) Ur Tricyclics Screen (NEGATIVE) Ur Phencyclidine Scrn (NEGATIVE) Ur Amphetamine Screen (NEGATIVE) U Methamphetamines Scrn (NEGATIVE) Urine MDMA Screen (NEGATIVE) U Benzodiazepines Scrn (NEGATIVE) U Cocaine Metab Screen (NEGATIVE) U Marijuana (THC) Screen (NEGATIVE) Ethyl Alcohol < 3 mg/dL SARS CoV-2 RNA Rapid RENATA 10/24/21 10/24/21 10/24/21 Range/Units 04:49 04:49 04:50 WBC (4.5-11.0) K/uL RBC (3.30-5.50) M/uL Hgb (12.0-15.0) g/dL Hct (36.0-48.0) % MCV (80-98) fL MCH (27-31) pg MCHC (32-36) % Plt Count (150-400) K/uL Sodium (140-148) mmol/L Potassium (3.6-5.2) mmol/L Chloride (100-108) mmol/L Carbon Dioxide (21-32) mmol/L Anion Gap (5.0-14.0) mmol/L BUN (7-18) mg/dL Creatinine (0.6-1.0) mg/dL Est Cr Clr Drug Dosing mL/min Estimated GFR (MDRD) (>60) Glucose (74-106) mg/dL Calcium (8.5-10.1) mg/dL TSH, Ultra Sensitive (0.358-3.740) uIU/mL Urine Color (YELLOW) Urine Appearance (CLEAR) Urine pH (5.0-8.0) Ur Specific Agency (1.008-1.030) Urine Protein (NEGATIVE) mg/dL Urine Glucose (UA) (NEGATIVE) mg/dL Urine Ketones (NEGATIVE) mg/dL Urine Occult Blood (NEGATIVE) Urine Nitrite (NEGATIVE) Urine Bilirubin (NEGATIVE) Urine Urobilinogen (0.2-1.0) EU/dL Ur Leukocyte Esterase (NEGATIVE) Urine RBC (0-5) Urine WBC (0-5) Ur Epithelial Cells Amorphous Sediment Urine Bacteria Urine Mucus Urine HCG, Qual Negative Salicylates (2.0-20.0) mg/dL Urine Opiates Screen Negative (NEGATIVE) Ur Oxycodone Screen Negative (NEGATIVE) Urine Methadone Screen Negative (NEGATIVE) Ur Propoxyphene Screen Negative (NEGATIVE) Acetaminophen (10.0-30.0) ug/mL Ur Barbiturates Screen Negative (NEGATIVE) Ur Tricyclics Screen Negative (NEGATIVE) Ur Phencyclidine Scrn Negative (NEGATIVE) Ur Amphetamine Screen Negative (NEGATIVE) U Methamphetamines Scrn Negative (NEGATIVE) Urine MDMA Screen Negative (NEGATIVE) U Benzodiazepines Scrn Negative (NEGATIVE) U Cocaine Metab Screen Negative (NEGATIVE) U Marijuana (THC) Screen Negative (NEGATIVE) Ethyl Alcohol mg/dL SARS CoV-2 RNA Rapid RENATA Negative Medications Discontinued Medications Generic Name Dose Route Start Last Admin Trade Name Freq PRN Reason Stop Dose Admin Olanzapine 10 mg 10/24/21 02:59 10/24/21 03:07 Olanzapine 10 Mg Vial IM 10/24/21 03:00 10 mg ONETIME ONE Administration Olanzapine 5 mg 10/25/21 07:47 10/25/21 07:54 Olanzapine 5 Mg Tab PO 10/25/21 07:48 5 mg ONETIME ONE Administration Departure - Departure Time of Disposition: 19:27 - Assessment/Plan Plan: Assessment Acuity = acute Site and laterality = schizophrenia with medical compliance Etiology = unknown Manifestations = none Location of injury = Home Lab values = CBC, BMP, urinalysis, urine drug screen alcohol Covid all negative Plan Acceptance from Dr. Hand psychiatrist at [facility] should be transported via EMS ground This note was dictated using [employer]PperPRINT voice recognition software please call with any questions on syntax or grammar.
[2021-10-25] MEDS ORDERED: OLANZapine 5 MG Tab PO ONE (07:47)
[2021-10-25 19:52] VITALS: BP 119/84; PULSE 91
[2021-10-26] MEDS: OLANZapine 10 MG Vial IM SCH ×2 (06:53→12:06)
[2021-10-26] MEDS ORDERED: OLANZapine 5 MG Tab PO SCH (09:00)
== END 2021-10-26 11:15 ==
LOC: JP.ED 01:57
DX: F20.1 Disorganized schizophrenia (principal); E66.9 Obesity, unspecified; Z72.0 Tobacco use; Z68.23 Body mass index [BMI] 23.0-23.9, adult; Z88.8 Allergy status to other drugs, medicaments and biological substances; Z91.19 Patient's noncompliance with other medical treatment and regimen
CPT/HCPCS: 36415; 80048; 80143; 80179; 80305; 80307; 81001; 81025; 84443; 85027; 96372; 99284; J3490; U0002

== ENCOUNTER 2024-12-22 15:33 | Emergency (ER) | payer MEDICARE, MEDICAID ==
[2024-12-22 15:44] VITALS: BP 129/86; PULSE 122
[2024-12-22 16:43] LABS: BASOPHILS ABSOLUTE AUTO 0.03 K/uL (0.00-0.10); BASOPHILS PERCENT AUTO 0.4 % (0.1-1.3); EOSINOPHILS ABSOLUTE AUTO 0.13 K/uL (0.00-0.40); EOSINOPHILS PERCENT AUTO 1.6 % (0.0-5.4); HEMATOCRIT 41.8 % (34.3-46.0); HEMOGLOBIN 14.7 g/dL (11.2-15.5); IMMATURE GRAN ABSOLUTE AUTO 0.09 K/uL (0.00-0.23); IMMATURE GRAN PERCENT AUTO 1.1 % (0.0-0.7); LYMPHOCYTES ABSOLUTE AUTO 2.98 K/uL (0.8-3.3); MEAN CORPUSCULAR HEMOGLOBIN 31.1 pg (31.6-35.5); MEAN CORPUSCULAR HGB CONC 35.2 g/dL (31.6-35.5); MEAN CORPUSCULAR VOLUME 88.4 fL (81.4-99.0); MONOCYTES ABSOLUTE AUTO 0.68 K/uL (0.20-0.90); MONOCYTES PERCENT AUTO 8.2 % (3.3-12.6); NEUTROPHILS ABSOLUTE AUTO 4.36 K/uL (1.0-7.6); NEUTROPHILS PERCENT AUTO 52.7 % (40.0-78.1); PLATELET COUNT,PLT 176 K/uL (130-375); RED BLOOD CELL COUNT 4.73 M/uL (3.77-5.24); WHITE BLOOD CELL COUNT,WBC 8.3 K/uL (3.2-11.0)
[2024-12-22 17:14] LABS: CALCIUM 9.1 mg/dL (8.5-10.1); CREATININE 0.9 mg/dL (0.6-1.0); EST CRCL DRUG DOSING (CG) 66.25 mL/min; POTASSIUM,K 4.2 mmol/L (3.6-5.2); TSH ULTRASENSITIVE 2.057 uIU/mL (0.358-3.740)
[2024-12-22 17:15] LABS: ANION GAP 12.2 mmol/L (5.0-14.0)
== END 2024-12-22 17:30 ==
LOC: JP.ED 15:33
DX: F99 Mental disorder, not otherwise specified (principal); Z88.8 Allergy status to other drugs, medicaments and biological substances; Z79.899 Other long term (current) drug therapy
CPT/HCPCS: 36415; 80048; 80307; 84443; 85025; 99284